=== PATIENT | female | born 2000 | race Caucasian/White ===

== ENCOUNTER 2020-04-03 18:00 | Outpatient (CLI) | payer SELFPAY ==
[2020-04-03 19:15] VITALS: BP 135/65; PULSE 102; RESP 15; TEMP 96.6
--- NOTE | 2020-04-05 07:51 | P.MSEPDOC ---
Presenting Problems - Arrival Data Date of Arrival on Unit: 04/03/20 Time of Arrival on Unit: 17:57 Mode of Transport: Ambulatory - Complaint OB-Reason for Admission/Chief Complaint: Decreased Movement Comment: Pt complains of chest pain she describes like heartburn and lower abdominal pain. Medical History - Information : 1 Para: 0 Term: 0 : 0 Abortions: Spontaneous or Elective: 0 Number of Living Children: 0 - Gestational Age Gestational Age by SOURAV (wks/days): 27 Weeks and 6 Days Review of Systems - Review of Systems Constitutional: No problems Breast: No problems ENT: No problems Cardiovascular: No problems Respiratory: No problems Gastrointestinal: No problems Genitourinary: No problems Musculoskeletal: No problems Neurological: No problems Skin: No problems Vital Signs - Temperature Temperature: 96.6 F Temperature Source: Temporal Artery Scan - Pulse Pulse Oximetery Pulse Rate: 102 Pulse Assessment Method: Pulse Oximetry - Respirations Respiratory Rate: 15 Oxygen Delivery Method: Room Air O2 Sat by Pulse Oximetry: 100 - Blood Pressure Right Arm Blood Pressure: 135/65 Blood Pressure Mean: 88 Blood Pressure Source: Automatic Cuff Medical Screen Scoring (Pre) - Cervical Exam Dilation: Exam Deferred Effacement: Exam Deferred Membranes: Intact - Uterine Contractions Frequency: N/A Duration: N/A Intensity: N/A - Maternal Vital Signs Maternal Temperature: N/A Maternal Blood Pressure: N/A Signs of Preeclampsia: N/A Maternal Respirations: N/A - Maternal Trauma Maternal Trauma: N/A - Assessment - Baby A Baseline FHR: 125 Position: N/A Station: N/A - Total Score - Baby A Total Score - Baby A: 0 - Total Score - Baby B Total Score - Baby B: 0 - Total Score - Baby C Total Score - Baby C: 0 - Level of Risk - Baby A Level of Risk - Baby A: Low (0-5) - Level of Risk - Baby B Level of Risk - Baby B: Low (0-5) - Level of Risk - Baby C Level of Risk - Baby C: Low (0-5) Physician Notification (Pre) - Physician Notified Physician Notified Date: 04/03/20 Physician Notified Time: 18:40 New Order Received: Yes Medical Screen Scoring (Post) - Cervical Exam Dilation: Exam Deferred - Uterine Contractions Frequency: N/A Duration: N/A Intensity: N/A - Maternal Vital Signs Maternal Temperature: N/A Maternal Blood Pressure: N/A Signs of Preeclampsia: N/A Maternal Respirations: N/A - Maternal Trauma Maternal Trauma: N/A - Assessment - Baby A Heart Rate: 130 Heart Rate - NICHD Category: Category I (Normal) = 0 NST: Reactive Position: N/A - Total Score Total Score - Baby A: 0 Total Score - Baby B: 0 Total Score - Baby C: 0 - Post Treatment Level of Risk Post Treatment Level of Risk - Baby A: Low (0-5) Post Treatment Level of Risk - Baby B: Low (0-5) Post Treatment Level of Risk - Baby C: Low (0-5) Physician Notification (Post) - Physician Notified Physician Notified Date: 04/03/20 Physician Notified Time: 19:50 Physician/Practitioner Notified:: ragini Gleason Order Received: Yes - Notification Comment Comment: reviewed fhts and +fm since my shift. reported on no cntrx or pain. orders to d/c home with instructions, keep scheduled appt in office on wednesday. Disposition - Disposition OB Disposition: Discharge to home Discharge Date: 04/03/20 Discharge Time: 20:00 I agree with the RN Medical Screening Exam: Yes Risk & Benefit of care provided described in d/c instruction: Yes Diagnosis: DECREASED MOVEMENTS, SECOND TRIMESTER, FETUS 1
== END 2020-04-03 20:00 | disposition home or self-care (01) ==
LOC: FBPOP 18:00
PROVIDERS: ATTEND Obstetrics & Gynecology
DX: O36.8121 Decreased fetal movements, second trimester, fetus 1 (principal); Z3A.27 27 weeks gestation of pregnancy
CPT/HCPCS: 99213

== ENCOUNTER 2020-06-10 14:00 | Outpatient (CLI) | payer SELFPAY ==
[2020-06-10 14:39] VITALS: BP 149/88; PULSE 91; RESP 18; TEMP 98.5
--- NOTE | 2020-06-12 08:08 | P.MSEPDOC ---
Presenting Problems - Arrival Data Date of Arrival on Unit: 06/10/20 Time of Arrival on Unit: 14:00 Mode of Transport: Ambulatory - Complaint OB-Reason for Admission/Chief Complaint: Rule Out SROM Comment: mucous discharge with some spotting yesterday and again this morning Medical History - Information : 1 Para: 0 Term: 0 : 0 Abortions: Spontaneous or Elective: 0 Number of Living Children: 0 - Gestational Age Gestational Age by SOURAV (wks/days): 37 Weeks and 4 Days Review of Systems - Review of Systems Constitutional: No problems Breast: No problems ENT: No problems Cardiovascular: No problems Respiratory: No problems Gastrointestinal: No problems Genitourinary: No problems Musculoskeletal: No problems Neurological: No problems Skin: No problems Vital Signs - Temperature Temperature: 98.5 F Temperature Source: Oral - Pulse Right Sitting Brachial Pulse Rate: 91 Pulse Assessment Method: Automatic Cuff - Respirations Respiratory Rate: 18 Oxygen Delivery Method: Room Air - Blood Pressure Right Arm Sitting Blood Pressure: 149/88 Blood Pressure Mean: 108 - Comment Vital Signs Comment: BP 123/75 on repeat Medical Screen Scoring (Pre) - Cervical Exam Dilation: 1-3 cm = 1 - Uterine Contractions Frequency: > 5 minutes apart = 1 Duration: > 40 seconds = 2 Intensity: N/A - Maternal Vital Signs Maternal Temperature: N/A Maternal Blood Pressure: Systolic >139 = 2 Signs of Preeclampsia: N/A Maternal Respirations: N/A - Assessment - Baby A Baseline FHR: 125 Heart Rate - NICHD Category: Category I (Normal) = 0 NST: Reactive Position: N/A Station: N/A - Total Score - Baby A Total Score - Baby A: 6 - Total Score - Baby B Total Score - Baby B: 6 - Total Score - Baby C Total Score - Baby C: 6 - Level of Risk - Baby A Level of Risk - Baby A: Medium (6-9) - Level of Risk - Baby B Level of Risk - Baby B: Medium (6-9) - Level of Risk - Baby C Level of Risk - Baby C: Medium (6-9) - Pain Assessment Pain Location and Character: Abdomen Pain Scale Used: Numeric (1 - 10) Pain Intensity: 3 Pain Management Goal: 3 Pain Description: Cramping Physician Notification (Pre) - Physician Notified Physician Notified Date: 06/10/20 Physician Notified Time: 14:35 New Order Received: Yes - Notification Comment Comment: amnisure neg. NST reactive. Variable deceleration x1. Blood pressures discussed.dc home. Pt to follow up in the office Wednesday as scheduled. Disposition - Disposition OB Disposition: Discharge to home Discharge Date: 06/10/20 Discharge Time: 14:38 I agree with the RN Medical Screening Exam: Yes Risk & Benefit of care provided described in d/c instruction: Yes Diagnosis: FALSE LABOR BEFORE 37 COMPLETED WEEKS OF GEST, THIRD TRI
== END 2020-06-10 14:39 | disposition home or self-care (01) ==
LOC: FBPOP 14:00
PROVIDERS: ATTEND Obstetrics & Gynecology
DX: O47.03 False labor before 37 completed weeks of gestation, third trimester (principal); Z3A.37 37 weeks gestation of pregnancy
CPT/HCPCS: 59025; 84112; 99213

== ENCOUNTER 2020-06-16 13:40 | Inpatient (IN) | payer OTHER ==
[2020-06-16] MEDS ORDERED: TERBUTALINE 1 MG/ML VIAL SQ PRN (14:14)
[2020-06-16] MEDS ORDERED: CARBOPROST TROMETHAMINE 250 MCG/ML 1 ML AMP IM PRN (14:14)
[2020-06-16] MEDS ORDERED: OXYTOCIN 10 UNIT/ML 1 ML VIAL IM PRN (14:14)
[2020-06-16] MEDS ORDERED: AMPICILLIN 2,000 MG in SODIUM CHLORIDE 0.9% 100 ML IVPB STA (14:14)
[2020-06-16] MEDS ORDERED: METHYLERGONOVINE 0.2 MG/ML 1 ML AMP IM PRN (14:14)
[2020-06-16] MEDS ORDERED: LIDOCAINE 0.5% (PF) 5 MG/ML (50 ML SDV) SQ PRN (14:14)
[2020-06-16] MEDS ORDERED: LACTATED RINGERS 1,000 ML IV SCH (14:15)
[2020-06-16 14:24] LABS: Basophils % (A) 0 %; Eosinophils # (A) 0.1 k/uL (0-0.7); Eosinophils % (A) 1 %; HGB 10.6 gm/dL (11.4-16.0); Lymphocytes # (A) 1.5 k/uL (1.0-4.8); Lymphocytes % (A) 12 %; MCH 28.7 pg (25.0-35.0); MCV 86.7 fL (80.0-100.0); Mean Platelet Volume 8.4; Monocytes # (A) 0.4 k/uL (0-1.0); Monocytes % (A) 3 %; Neutrophils % (A) 82 %; Platelet Count 296 k/uL (150-450); RBC 3.69 m/uL (3.80-5.40); RDW 14.7 % (11.5-15.5); WBC 12.2 k/uL (4.0-11.0)
--- NOTE | 2020-06-16 14:54 | P.HPOB ---
History of Present Illness H&P Date: 06/16/20 Chief Complaint: Contractions This patient is a pleasant 20-year-old 1 para 0 female estimated date of confinement 06/27/2020 estimated gestational age 38-3/7 weeks who presents to labor and delivery with complaints of contractions. Patient's cervix is dilated 78 cm on admission found to be in active labor. Patient's care is per Dr. Walsh's comp K by positive chlamydial first trimester culture which negative test of cure. otherwise uncomplicated. Patient has spontaneous rupture membranes upon arrival to labor and delivery for clear fluid she is oh positive group B strep culture Review of Systems Genitourinary: Reports Menstruation: Reports amenorrhea Past Medical History History of Any Multi-Drug Resistant Organisms: None Reported Past Surgical History: No Surgical Hx Reported Past Anesthesia/Blood Transfusion Reactions: No Reported Reaction Past Psychological History: No Psychological Hx Reported Smoking Status: Never smoker Past Alcohol Use History: None Reported Past Drug Use History: None Reported Medications and Allergies Home Medications Medication Instructions Recorded Confirmed Type No Known Home Medications 04/03/20 06/16/20 History Allergies Allergy/AdvReac Type Severity Reaction Status Date / Time No Known Allergies Allergy Verified 04/03/20 18:02 Exam Intake and Output 06/15/20 06/16/20 06/16/20 22:59 06:59 14:59 Other: Weight 92.533 kg - OBG Physical Exam Abdomen: bowel sounds normal, no diffuse tenderness, no bruit present, no guarding noted, no hepatomegaly, no splenomegaly, no mass Vulva: both: normal Vagina: normal moisture, no discharge Cervix: Cervix is 7-8 cm on admission. Results blood work blood work shows she is a positive, rubella immune, RPR nonreactive, hepatitis B negative. Group B strep was positive Result Diagrams: 06/16/20 14:10 Abnormal Lab Results - Last 24 Hours (Table) 06/16/20 Range/Units 14:10 WBC 12.2 H (4.0-11.0) k/uL RBC 3.69 L (3.80-5.40) m/uL Hgb 10.6 L (11.4-16.0) gm/dL Hct 32.0 L (34.0-46.0) % Neutrophils # 10.0 H (1.3-7.7) k/uL Assessment and Plan Assessment: This is a pleasant 20-year-old 1 para 0 female 38 and half weeks gestation active labor and spontaneous rupture membranes with positive group B strep culture. Plan is antibiotic prophylaxis and anticipate vaginal delivery (1) 38 weeks gestation of Current Visit: Yes Status: Acute Code(s): Z3A.38 - 38 WEEKS GESTATION OF SNOMED Code(s): 15987287 (2) Normal labor Current Visit: Yes Status: Acute Code(s): O80 - ENCOUNTER FOR FULL-TERM UNCOMPLICATED DELIVERY; Z37.9 - OUTCOME OF DELIVERY, UNSPECIFIED SNOMED Code(s): 41194780 (3) Group B streptococcal carriage complicating Current Visit: Yes Status: Acute Code(s): O99.820 - STREPTOCOCCUS B CARRIER STATE COMPLICATING SNOMED Code(s): 285935824537611
--- NOTE | 2020-06-16 14:56 | P.PROBDLV ---
Vaginal Delivery Note - . Vaginal Delivery Note: Normal spontaneous vaginal delivery viable female infant Apgars 9 and 9 delivery time is 1443 hrs. Please see dictated H&P for intimate details of this patient's admission. Brief summary is a pleasant 20-year-old 1 para 0 female 38-3/7 weeks who is admitted to labor and delivery with complaints of contractions found to be 78 cm dilated. Patient spontaneous rupture membranes for clear fluid. She is given one dose of antibiotics on admission. Patient does not request anything for pain control. Labor progresses quite quickly and she gets to complete. Patient pushes the head to the perineum posterior perineum is supported. We have controlled delivery of the infant's head over the intact perineum. Mouth and nares are bulb suctioned. Gentle downward traction we then have deliver the anterior and posterior shoulder and rest this 's body. This is a vigorous viable female infant Apgars are 9 and 9 delivery time is 1443 hrs. Infant has spontaneous respiration and good cry and grossly appears normal. After delivery of the infant is laid on the mother's abdomen. After the umbilical cord is done pulsating, it is doubly clamped and cut. The placenta is then spontaneously delivered intact. Estimated blood loss is 100 mL. There are no lacerations and no repairs required. and mother are stable delivery room.
[2020-06-16] MEDS ORDERED: SIMETHICONE 80 MG CHEWABLE PO PRN (14:57)
[2020-06-16] MEDS ORDERED: ZOLPIDEM 5 MG TAB PO PRN (14:57)
[2020-06-16] MEDS ORDERED: ACETAMINOPHEN TAB 325 MG TAB PO PRN (14:57)
[2020-06-16] MEDS ORDERED: diphenhydrAMINE 50 MG/ML 1 ML VIAL IVP PRN (14:57)
[2020-06-16] MEDS ORDERED: BENZOCAINE/MENTHOL SPRAY 1 GM/SPRAY AEROSOL TOPICAL PRN (14:57)
[2020-06-16] MEDS ORDERED: HYDROCORTISONE 2.5% RECTAL CREAM 30 GM TUBE RECTAL PRN (14:57)
[2020-06-16] MEDS ORDERED: IBUPROFEN 600 MG TAB PO PRN (14:57)
[2020-06-16] MEDS ORDERED: bisacodyL 10 MG SUPP RECTAL PRN (14:57)
[2020-06-16] MEDS ORDERED: diphenhydrAMINE 25 MG CAP PO PRN (14:57)
[2020-06-16] MEDS ORDERED: LANOLIN CREAM 5 GM TUBE TOPICAL PRN (14:57)
[2020-06-16] MEDS ORDERED: OXYTOCIN 20 UNITS/1000 ML NS 1,000 ML IV SCH (15:00)
[2020-06-16] MEDS ORDERED: AMPICILLIN 1,000 MG in SODIUM CHLORIDE 0.9% 50 ML IVPB SCH (18:15)
[2020-06-16] MEDS: SENNOSIDES-DOCUSATE SODIUM 1 EACH TAB PO SCH (20:03)
--- NOTE | 2020-06-17 05:32 | P.PNOBGVD ---
Subjective - Subjective Patient reports: Reports appetite normal, Reports voiding normally, Reports pain well controlled, Reports ambulating normally : doing well Objective - Latest Vital Signs Latest vital signs: Vital Signs Temp Pulse Resp BP Pulse Ox 06/16/20 23:49 85 16 06/16/20 23:48 98.6 F 85 16 135/87 98 06/16/20 19:49 98.6 F 85 16 128/73 98 06/16/20 16:55 98.0 F 67 16 150/89 06/16/20 16:24 97.9 F 61 16 161/90 06/16/20 15:55 63 16 171/88 06/16/20 15:40 67 16 166/86 06/16/20 15:25 97.9 F 60 16 139/87 06/16/20 15:10 98.1 F 61 16 132/62 06/16/20 14:55 97.4 F L 68 16 140/68 06/16/20 14:12 98.1 F 93 18 146/78 100 Intake and Output 06/16/20 06/16/20 06/17/20 14:59 22:59 06:59 Intake Total 700 Balance 700 Intake: IV 700 Other: # Voids 1 Weight 92.533 kg - Exam Lungs: bilateral: normal Chest: Normal S1, Normal S2 Extremities: Present: normal Abdomen: Present: normal appearance, soft Uterus: Present: normal, firm - Labs Labs: Abnormal Lab Results - Last 24 Hours (Table) 06/16/20 Range/Units 14:10 WBC 12.2 H (4.0-11.0) k/uL RBC 3.69 L (3.80-5.40) m/uL Hgb 10.6 L (11.4-16.0) gm/dL Hct 32.0 L (34.0-46.0) % Neutrophils # 10.0 H (1.3-7.7) k/uL Assessment and Plan Assessment: day #1. Patient is resting without new complaints. Vital signs are stable she's afebrile. Uterus is firm nontender and she is having normal lochia. My impression this is a normal course. Plan is to continue routine care discharge home tomorrow (1) 38 weeks gestation of Current Visit: Yes Status: Acute Code(s): Z3A.38 - 38 WEEKS GESTATION OF SNOMED Code(s): 68051145 (2) Normal labor Current Visit: Yes Status: Acute Code(s): O80 - ENCOUNTER FOR FULL-TERM UNCOMPLICATED DELIVERY; Z37.9 - OUTCOME OF DELIVERY, UNSPECIFIED SNOMED Code(s): 45338405 (3) Group B streptococcal carriage complicating Current Visit: Yes Status: Acute Code(s): O99.820 - STREPTOCOCCUS B CARRIER STATE COMPLICATING SNOMED Code(s): 152124890716671
[2020-06-17] MEDS: SENNOSIDES-DOCUSATE SODIUM 1 EACH TAB PO SCH (21:20)
[2020-06-18 00:59] VITALS: TEMP 98.2
--- NOTE | 2020-06-18 06:28 | P.PNOBGVD ---
Subjective - Subjective Patient reports: Reports appetite normal, Reports voiding normally, Reports pain well controlled, Reports ambulating normally : doing well Objective - Latest Vital Signs Latest vital signs: Vital Signs Temp Pulse Resp BP Pulse Ox 06/18/20 00:00 98.2 F 69 16 143/78 100 06/17/20 16:17 98.0 F 73 16 150/81 06/17/20 12:39 75 16 129/76 06/17/20 09:10 98.3 F 76 16 142/89 Intake and Output 06/17/20 06/17/20 06/18/20 14:59 22:59 06:59 Intake Total 120 Balance 120 Intake: Oral 120 Other: # Voids 2 1 # Bowel Movements 1 - Exam Lungs: bilateral: normal Chest: Normal S1, Normal S2 Extremities: Present: normal Abdomen: Present: normal appearance, soft Uterus: Present: normal, firm Assessment and Plan Assessment: day #2. Patient is resting without complaints. Vital signs are stable and she is afebrile. Uterus is firm nontender and she has normal lochia. My impression is a normal course. Plan is to continue routine care and discharge home later today. (1) 38 weeks gestation of Current Visit: Yes Status: Acute Code(s): Z3A.38 - 38 WEEKS GESTATION OF SNOMED Code(s): 96433077 (2) Normal labor Current Visit: Yes Status: Acute Code(s): O80 - ENCOUNTER FOR FULL-TERM UNCOMPLICATED DELIVERY; Z37.9 - OUTCOME OF DELIVERY, UNSPECIFIED SNOMED Code(s): 68450420 (3) Group B streptococcal carriage complicating Current Visit: Yes Status: Acute Code(s): O99.820 - STREPTOCOCCUS B CARRIER STATE COMPLICATING SNOMED Code(s): 461244295229550
--- NOTE | 2020-06-18 06:32 | P.DS ---
Providers Date of admission: 06/16/20 13:52 Expected date of discharge: 06/18/20 Attending physician: Margaux Walsh Primary care physician: Stated None - Discharge Diagnosis(es) (1) 38 weeks gestation of Current Visit: Yes Status: Acute (2) Normal labor Current Visit: Yes Status: Acute (3) Group B streptococcal carriage complicating Current Visit: Yes Status: Acute Hospital Course: Please see dictated H&P for intimate details of this patient's admission. Brief summary this pleasant 20-year-old 1 para 0 female 38 and half weeks gestation admitted to labor and delivery in active labor. Patient quickly goes on have a vaginal delivery viable female . Please see dictated delivery note. day #2 patient's felt be stable for discharge home follow up with Dr. Walsh and 6 weeks. Procedures: Normal spontaneous vaginal delivery Patient Condition at Discharge: Good Plan - Discharge Summary Discharge Rx Participant: Yes New Discharge Prescriptions: New Ibuprofen [Motrin] 600 mg PO Q6HR PRN #30 tab PRN Reason: Mild Pain Or Fever >= 100.5 Discharge Medication List Ibuprofen [Motrin] 600 mg PO Q6HR PRN #30 tab 06/18/20 [Rx] Follow up Appointment(s)/Referral(s): Margaux Walsh DO [Doctor of Osteopathic Medicine] - 08/02/20 10:45 am Patient Instructions/Handouts: Vaginal Delivery (DC) Activity/Diet/Wound Care/Special Instructions: No intercourse or anything per vagina for 6 weeks. Please call if any fever, chills, excessive vaginal bleeding, and/or abdominal pain. Discharge Disposition: HOME SELF-CARE
[2020-06-18] MEDS: SENNOSIDES-DOCUSATE SODIUM 1 EACH TAB PO SCH (09:48)
[2020-06-18 16:28] LABS: Basophils % (A) 0 %; Eosinophils # (A) 0.2 k/uL (0-0.7); Eosinophils % (A) 2 %; HCT 26.6 % (34.0-46.0); Hypochromasia Slight; Lymphocytes # (A) 1.9 k/uL (1.0-4.8); Lymphocytes % (A) 24 %; MCH 29.3 pg (25.0-35.0); MCHC 33.5 g/dL (31.0-37.0); MCV 87.4 fL (80.0-100.0); Mean Platelet Volume 7.5; Monocytes # (A) 0.3 k/uL (0-1.0); Monocytes % (A) 4 %; Neutrophils # (A) 5.3 k/uL (1.3-7.7); Neutrophils % (A) 68 %; Platelet Count 330 k/uL (150-450); RBC 3.04 m/uL (3.80-5.40); RDW 14.8 % (11.5-15.5); WBC 7.8 k/uL (4.0-11.0)
[2020-06-18 16:29] LABS: HGB 8.9 gm/dL (11.4-16.0)
[2020-06-18 16:31] LABS: Appearance,Urine Clear (Clear); Bilirubin,Urine Negative (Negative); Blood,Urine Moderate (Negative); Color,Urine Light Yellow; Glucose,Urine (UA) Negative (Negative); Hyaline Casts,Urine 1 /lpf (0-2); Ketones,Urine Negative (Negative); Leukocyte Esterase,Urine Large (Negative); Mucus,Urine Rare /hpf; Nitrite,Urine Negative (Negative); PH, Urine 6.5 (5.0-8.0); Protein,Urine Negative (Negative); RBC,Urine 71 /hpf (0-5); Specific Gravity,Urine 1.012 (1.001-1.035); Squamous Epithelial Cell,Urine 1 /hpf (0-4); Urobilinogen,Urine <2.0 mg/dL (<2.0); WBC,Urine 14 /hpf (0-5)
[2020-06-18 16:46] LABS: Protein/Creatinine Ratio,Urine 0.301
[2020-06-18 16:47] LABS: ALT 12 U/L (4-34); AST 22 U/L (14-36); African American GFR (CKD) >90 (>60 ml/min/1.73 sqM); Blood Urea Nitrogen 11 mg/dL (7-17); LDH 610 U/L (313-618); Non-African American GFR(CKD) >90 (>60 ml/min/1.73 sqM); Uric Acid 5.1 mg/dL (3.7-7.4)
[2020-06-18 19:03] VITALS: BP 154/99; PULSE 73; RESP 18
== END 2020-06-18 19:25 | disposition home or self-care (01) | DRG 807 ==
LOC: FBPOP 13:40 → 4FBP 13:52
PROVIDERS: ADMIT Obstetrics & Gynecology; ATTEND Obstetrics & Gynecology
PROC: 10E0XZZ Delivery of Products of Conception, External Approach (ICD-10-PCS; principal; 2020-06-16)
DX: O99.824 Streptococcus B carrier state complicating childbirth (principal); Z37.0 Single live birth; Z3A.38 38 weeks gestation of pregnancy; Z86.19 Personal history of other infectious and parasitic diseases
CPT/HCPCS: 59025; 81001; 82565; 82570; 83615; 84112; 84156; 84450; 84460; 84520; 84550; 85025; 86850; 86900; 86901; 99213

== ENCOUNTER 2020-08-27 17:04 | Inpatient (IN) | payer OTHER ==
[2020-08-27] MEDS ORDERED: PANTOPRAZOLE 40 MG/10 ML VIAL IVP STA (17:35)
[2020-08-27] MEDS ORDERED: KETOROLAC 15 MG/ML 1 ML VIAL IVP STA (17:35)
[2020-08-27] MEDS ORDERED: SODIUM CHLORIDE 0.9% 1,000 ML IV STA (17:35)
[2020-08-27] MEDS ORDERED: ONDANSETRON 4 MG/2 ML VIAL IVP STA (17:35)
--- NOTE | 2020-08-27 17:39 | ED ---
Abdominal Pain HPI - General Chief Complaint: Abdominal Pain Stated Complaint: ABD PAIN, VOMITING Time Seen by Provider: 08/27/20 17:26 Source: patient Mode of arrival: ambulatory Limitations: no limitations - History of Present Illness Initial Comments: Patient is a 20-year-old female with history of GERD presenting to emergency Department with a chief complaint of abdominal pain. Patient reports the pain started last night that she ate and is located in the epigastric and right upper quadrant region. Patient reports she took Tums initially because it felt a burning sensation. States it did alleviate the discomfort, however it did return again after she ate and has not resolved since. Patient states the pain is somewhat colicky in nature and mostly sharp. She does report nausea and 2 episodes of nonbilious and nonbloody vomiting. She denies increased urgency or frequency or dysuria. Denies any vaginal symptoms. Denies hematuria, hem atochezia or melena. She is 2 months . Denies night sweats or chills. Denies chest pain shortness of breath. She doesn't to drinking 3 days over the last week. - Related Data Home Medications Medication Instructions Recorded Confirmed Unknown Heart Burn Medication 1 tab PO DAILY PRN 08/27/20 08/27/20 (Unknown Strength) Allergies Allergy/AdvReac Type Severity Reaction Status Date / Time No Known Allergies Allergy Verified 08/27/20 18:58 Review of Systems ROS Statement: Those systems with pertinent positive or pertinent negative responses have been documented in the HPI. ROS Other: All systems not noted in ROS Statement are negative. Past Medical History Past Medical History: No Reported History History of Any Multi-Drug Resistant Organisms: None Reported Past Surgical History: No Surgical Hx Reported Past Anesthesia/Blood Transfusion Reactions: No Reported Reaction Past Psychological History: No Psychological Hx Reported Smoking Status: Vaper Past Alcohol Use History: Occasional Past Drug Use History: None Reported - Past Family History Mother History Unknown: Yes General Exam Limitations: no limitations General appearance: alert, in no apparent distress, obese Head exam: Present: atraumatic, normocephalic, normal inspection Eye exam: Present: normal appearance, PERRL, EOMI Pupils: Present: normal accommodation ENT exam: Present: normal exam, normal oropharynx, mucous membranes moist Neck exam: Present: normal inspection, full ROM. Absent: tenderness Respiratory exam: Present: normal lung sounds bilaterally. Absent: respiratory distress, wheezes, rales Cardiovascular Exam: Present: regular rate, normal rhythm, normal heart sounds GI/Abdominal exam: Present: soft, tenderness (Epigastric and right upper quadran tenderness t. Positive Morin sign.). Absent: distended, guarding, rigid Extremities exam: Present: normal inspection, full ROM, normal capillary refill. Absent: tenderness Back exam: Present: normal inspection, full ROM. Absent: tenderness, CVA tenderness (R), CVA tenderness (L) Neurological exam: Present: alert, oriented X3, CN II-XII intact, normal gait Psychiatric exam: Present: normal affect, normal mood Skin exam: Present: warm, dry, intact, normal color Course Vital Signs 08/27/20 17:22 Temperature 98.6 F Pulse Rate 88 Respiratory 18 Rate Blood Pressure 133/83 O2 Sat by Pulse 100 Oximetry Medical Decision Making - Medical Decision Making Patient is a 20-year-old male presenting to the emergency department with a chief complaint of abdominal pain. Exam patient has positive Morin sign with right upper quadrant epigastric tenderness. She does have nausea or vomiting. Patient was given IV fluids, antiemetics and analgesia. CBC is unremarkable. CMP reveals significant elevation in liver enzymes. She also has elevated bilirubin and lipase of 3500. Ultrasound pending. Patient is otherwise feeling comfortable. She is not . This appears to be gallstone pancreatitis. was consulted and is suggesting IV antibiotics and 2 L of IV bolus fluids. Repeat labs in the morning. Case discussed with Admitting is Dr Galvez - Lab Data Result diagrams: 08/27/20 17:49 08/27/20 17:49 Lab Results 08/27/20 08/27/20 08/27/20 Range/Units 17:49 17:49 17:49 WBC 6.4 (4.0-11.0) k/uL RBC 4.01 (3.80-5.40) m/uL Hgb 11.4 (11.4-16.0) gm/dL Hct 35.6 (34.0-46.0) % MCV 88.7 (80.0-100.0) fL MCH 28.4 (25.0-35.0) pg MCHC 32.0 (31.0-37.0) g/dL RDW 15.2 (11.5-15.5) % Plt Count 382 (150-450) k/uL Neutrophils % 71 % Lymphocytes % 19 % Monocytes % 6 % Eosinophils % 2 % Basophils % 0 % Neutrophils # 4.6 (1.3-7.7) k/uL Lymphocytes # 1.2 (1.0-4.8) k/uL Monocytes # 0.4 (0-1.0) k/uL Eosinophils # 0.1 (0-0.7) k/uL Basophils # 0.0 (0-0.2) k/uL Hypochromasia Slight Sodium 139 (137-145) mmol/L Potassium 4.2 (3.5-5.1) mmol/L Chloride 105 (98-107) mmol/L Carbon Dioxide 26 (22-30) mmol/L Anion Gap 8 mmol/L BUN 13 (7-17) mg/dL Creatinine 0.56 (0.52-1.04) mg/dL Est GFR (CKD-EPI)AfAm >90 (>60 ml/min/1.73 sqM) Est GFR (CKD-EPI)NonAf >90 (>60 ml/min/1.73 sqM) Glucose 104 H (74-99) mg/dL Calcium 9.3 (8.4-10.2) mg/dL Total Bilirubin 2.1 H (0.2-1.3) mg/dL AST 718 H (14-36) U/L ALT 1068 H (4-34) U/L Alkaline Phosphatase 298 H (38-126) U/L Total Protein 8.5 H (6.3-8.2) g/dL Albumin 4.8 (3.5-5.0) g/dL Lipase 3567 H (23-300) U/L Urine Color Urine Appearance (Clear) Urine pH (5.0-8.0) Ur Specific [place] (1.001-1.035) Urine Protein (Negative) Urine Glucose (UA) (Negative) Urine Ketones (Negative) Urine Blood (Negative) Urine Nitrite (Negative) Urine Bilirubin (Negative) Urine Urobilinogen (<2.0) mg/dL Ur Leukocyte Esterase (Negative) Urine RBC (0-5) /hpf Urine WBC (0-5) /hpf Ur Squamous Epith Cells (0-4) /hpf Urine Mucus (None) /hpf Urine HCG, Qual Not Detected (Not Detectd) 08/27/20 Range/Units 18:07 WBC (4.0-11.0) k/uL RBC (3.80-5.40) m/uL Hgb (11.4-16.0) gm/dL Hct (34.0-46.0) % MCV (80.0-100.0) fL MCH (25.0-35.0) pg MCHC (31.0-37.0) g/dL RDW (11.5-15.5) % Plt Count (150-450) k/uL Neutrophils % % Lymphocytes % % Monocytes % % Eosinophils % % Basophils % % Neutrophils # (1.3-7.7) k/uL Lymphocytes # (1.0-4.8) k/uL Monocytes # (0-1.0) k/uL Eosinophils # (0-0.7) k/uL Basophils # (0-0.2) k/uL Hypochromasia Sodium (137-145) mmol/L Potassium (3.5-5.1) mmol/L Chloride (98-107) mmol/L Carbon Dioxide (22-30) mmol/L Anion Gap mmol/L BUN (7-17) mg/dL Creatinine (0.52-1.04) mg/dL Est GFR (CKD-EPI)AfAm (>60 ml/min/1.73 sqM) Est GFR (CKD-EPI)NonAf (>60 ml/min/1.73 sqM) Glucose (74-99) mg/dL Calcium (8.4-10.2) mg/dL Total Bilirubin (0.2-1.3) mg/dL AST (14-36) U/L ALT (4-34) U/L Alkaline Phosphatase (38-126) U/L Total Protein (6.3-8.2) g/dL Albumin (3.5-5.0) g/dL Lipase (23-300) U/L Urine Color Mathis Urine Appearance Clear (Clear) Urine pH 6.5 (5.0-8.0) Ur Specific [place] 1.036 H (1.001-1.035) Urine Protein Trace H (Negative) Urine Glucose (UA) Negative (Negative) Urine Ketones Negative (Negative) Urine Blood Trace H (Negative) Urine Nitrite Negative (Negative) Urine Bilirubin 1+ H (Negative) Urine Urobilinogen 3.0 (<2.0) mg/dL Ur Leukocyte Esterase Negative (Negative) Urine RBC <1 (0-5) /hpf Urine WBC 1 (0-5) /hpf Ur Squamous Epith Cells 1 (0-4) /hpf Urine Mucus Rare H (None) /hpf Urine HCG, Qual (Not Detectd) Disposition Clinical Impression: Abdominal pain, Nausea & vomiting, Gallstone pancreatitis Disposition: ADMITTED IP TO THIS [facility] Condition: Stable Instructions (If sedation given, give patient instructions): Abdominal Pain (ED) Additional Instructions: She will be admitted Is patient prescribed a controlled substance at d/c from ED?: No Referrals: None,Stated [Primary Care Provider] - 1-2 days Time of Disposition: 19:27
[2020-08-27 18:11] LABS: Basophils % (A) 0 %; Eosinophils # (A) 0.1 k/uL (0-0.7); Eosinophils % (A) 2 %; HCT 35.6 % (34.0-46.0); HGB 11.4 gm/dL (11.4-16.0); Hypochromasia Slight; Lymphocytes # (A) 1.2 k/uL (1.0-4.8); Lymphocytes % (A) 19 %; MCH 28.4 pg (25.0-35.0); MCV 88.7 fL (80.0-100.0); Mean Platelet Volume 6.7; Monocytes # (A) 0.4 k/uL (0-1.0); Monocytes % (A) 6 %; Neutrophils # (A) 4.6 k/uL (1.3-7.7); Neutrophils % (A) 71 %; Platelet Count 382 k/uL (150-450); RBC 4.01 m/uL (3.80-5.40); RDW 15.2 % (11.5-15.5); WBC 6.4 k/uL (4.0-11.0)
[2020-08-27 18:13] LABS: Appearance,Urine Clear (Clear); Bilirubin,Urine 1+ (Negative); Blood,Urine Trace (Negative); Color,Urine Orange; Glucose,Urine (UA) Negative (Negative); Ketones,Urine Negative (Negative); Leukocyte Esterase,Urine Negative (Negative); Mucus,Urine Rare /hpf; Nitrite,Urine Negative (Negative); PH, Urine 6.5 (5.0-8.0); Protein,Urine Trace (Negative); RBC,Urine <1 /hpf (0-5); Specific Gravity,Urine 1.036 (1.001-1.035); Squamous Epithelial Cell,Urine 1 /hpf (0-4); WBC,Urine 1 /hpf (0-5)
[2020-08-27 18:23] LABS: African American GFR (CKD) >90 (>60 ml/min/1.73 sqM); Albumin 4.8 g/dL (3.5-5.0); Alkaline Phosphatase 298 U/L (38-126); Anion Gap 8 mmol/L; Blood Urea Nitrogen 13 mg/dL (7-17); Calcium 9.3 mg/dL (8.4-10.2); Carbon Dioxide 26 mmol/L (22-30); Chloride 105 mmol/L (98-107); Glucose 104 mg/dL (74-99); Non-African American GFR(CKD) >90 (>60 ml/min/1.73 sqM); Potassium 4.2 mmol/L (3.5-5.1); Sodium 139 mmol/L (137-145); Total Bilirubin 2.1 mg/dL (0.2-1.3); Total Protein 8.5 g/dL (6.3-8.2)
[2020-08-27 18:41] LABS: ALT 1068 U/L (4-34); AST 718 U/L (14-36)
[2020-08-27] MEDS ORDERED: PIPERACILLIN-TAZOBACTAM 3.375 GM in SODIUM CHLORIDE 0.9% 100 ML IVPB STA (19:23)
[2020-08-27] MEDS ORDERED: SODIUM CHLORIDE 0.9% 2,000 ML IV STA (19:23)
[2020-08-27] MEDS ORDERED: traMADol 50 MG TAB PO PRN (19:27)
[2020-08-27] MEDS ORDERED: LORazepam 2 MG/ML INJ IV PRN (19:27)
[2020-08-27] MEDS ORDERED: HYDROmorphone 0.5 MG/0.5 ML SYRINGE IVP PRN (19:27)
[2020-08-27] MEDS ORDERED: ONDANSETRON 4 MG/2 ML VIAL IVP PRN (19:27)
[2020-08-27] MEDS ORDERED: NALOXONE 0.4 MG/ML 1 ML VIAL IV PRN (19:27)
--- NOTE | 2020-08-27 19:30 | US ---
EXAMINATION TYPE: US abdomen limited DATE OF EXAM: 08/27/2020 COMPARISON: NONE CLINICAL HISTORY: Right upper quadrant epigastric pain. . RUQ and epigastric pain x 1 day. EXAM MEASUREMENTS: Liver Length: 18.4 cm Gallbladder Wall: 0.22 cm CBD: 0.73 cm Right Kidney: 11.9 x 5.9 x 4.5 cm *Limited due to gas. Pancreas: Slightly limited due to gas. Liver: Measures enlarged. Gallbladder: Measures enlarged at 10.7 cm. Multiple hyperechoic foci with posterior shadowing seen wi thin the gallbladder. Evidence for sonographic Morin's sign: No CBD: Minimally dilated. Right Kidney: No hydronephrosis or masses seen -Hypoechoic-possibly anechoic area seen between the liver and right kidney of unknown origin measurin .8 x 1.5 x 1.0 cm. Visualized pancreas shows no worrisome mass or ductal dilatation. IVC seen near hepatic dome. Visuali zed liver is slightly heterogeneous without worrisome mass or ductal dilatation. Right kidney shows n o hydronephrosis. Gallbladder shows suspected small stones and/or gallbladder sludge. No suspicious s urrounding fluid or abnormal wall thickening. Mild common bile duct dilatation at 7 mm. Possible righ t adrenal gland prominence or hyperplasia corresponding to curvilinear hypoechoic structure described by technologist. IMPRESSION: Gallbladder sludge and/or small stones. No convincing secondary also no evidence for acut e cholecystitis. In patient with right upper quadrant pain not entirely excluded. Consider HIDA scan evaluation. Mild CBD dilatation could warrant follow-up. Correlate clinically.
[2020-08-27] MEDS: MORPHINE SULFATE 4 MG/ML SYRINGE IV PRN (20:09)
[2020-08-27] MEDS: SODIUM CHLORIDE 0.9% 1,000 ML IV SCH (23:00)
[2020-08-28 05:06] LABS: Basophils % (A) 1 %; Eosinophils # (A) 0.1 k/uL (0-0.7); Eosinophils % (A) 2 %; HCT 28.6 % (34.0-46.0); Hypochromasia Moderate; Lymphocytes # (A) 1.7 k/uL (1.0-4.8); Lymphocytes % (A) 29 %; MCHC 32.4 g/dL (31.0-37.0); MCV 89.3 fL (80.0-100.0); Mean Platelet Volume 6.9; Monocytes # (A) 0.3 k/uL (0-1.0); Monocytes % (A) 5 %; Neutrophils # (A) 3.4 k/uL (1.3-7.7); Neutrophils % (A) 61 %; Platelet Count 295 k/uL (150-450); RBC 3.21 m/uL (3.80-5.40); RDW 15.2 % (11.5-15.5); WBC 5.6 k/uL (4.0-11.0)
[2020-08-28 05:09] LABS: HGB 9.3 gm/dL (11.4-16.0)
[2020-08-28 09:36] LABS: African American GFR (CKD) 152.1 (60.0-200.0); Albumin 3.7 g/dL (3.80-4.90); Albumin/Globulin Ratio 1.68 (1.60-3.17); Anion Gap 7.5 mmol/L (4.00-12.00); BUN/Creat Ratio 18.33 Ratio (12.00-20.00); Calcium 8.2 mg/dL (8.7-10.3); Carbon Dioxide 22.5 mmol/L (21.6-31.8); Globulin 2.2 g/dL (1.6-3.3); Non-African American GFR(CKD) 131.2 (60.0-200.0); Potassium 3.7 mmol/L (3.5-5.5); Total Bilirubin 0.6 mg/dL (0.2-1.2); Total Protein 5.9 g/dL (6.2-8.2)
[2020-08-28] MEDS: SODIUM CHLORIDE 0.9% 1,000 ML IV SCH (10:25)
[2020-08-28] MEDS: MORPHINE SULFATE 4 MG/ML SYRINGE IV PRN ×2 (11:58→19:44)
--- NOTE | 2020-08-28 12:16 | P.GSHP ---
<Massiel Armas - Last Filed: 08/28/20 11:59> History of Present Illness H&P Date: 08/28/20 CHIEF COMPLAINT: Abdominal pain HISTORY OF PRESENT ILLNESS: This is a 20-year-old female who is 2 months and reports no other significant past medical history. She presents to the emergency room with complaints of epigastric and right upper quadrant abdominal pain after eating for the past 2 days. Patient describes it as a burning sensation. She did initially take Tums that did help alleviate the symptoms for a short period of time and then symptoms returned. She complains of nausea and had 2 episodes of vomiting. She's been having chills and sweats. She denies any fever. Abdominal ultrasound shows gallbladder sludge and or small stones. Also mild common bile duct dilation. She had elevation in her l iver enzymes as well as her lipase and amylase. She's been admitted to the hospital for gallstone pancreatitis. She is currently nothing by mouth, receiving IV fluids and pain medications as needed. Patient does report drinking alcohol occasionally on the weekends. She reports her last alcoholic drink was last Wednesday and she had 2 alcoholic averages. PAST MEDICAL HISTORY: See list. PAST SURGICAL HISTORY: See list. MEDICATIONS: See list. ALLERGIES: See list. SOCIAL HISTORY: No illicit drug use. REVIEW OF SYSTEMS: CONSTITUTIONAL: Denies fever or chills. HEENT: Denies blurred vision, vision changes, or eye pain. Denies hemoptysis CARDIOVASCULAR: Denies chest pain or pressure. RESPIRATORY: No shortness of breath. GASTROINTESTINAL: See HPI for pertinent findings HEMATOLOGIC: Denies bleeding disorders. GENITOURINARY: Denies any blood in urine or increased urinary frequency. SKIN: Denies pruitis. Denies rash. PHYSICAL EXAM: VITAL SIGNS: Reviewed GENERAL: Well-developed in no acute distress. HEENT: No sclera icterus. Extraocular movements grossly intact. Moist buccal mucosa. Head is atraumatic, normocephalic. No nasal drainage. ABDOMEN: Soft. Nondistended. Tenderness with palpation of the right upper quadrant and epigastric area NEUROLOGIC: Alert and oriented. Cranial nerves II through XII grossly intact. LABORATORY DATA: WBC 5.6 hemoglobin 9.3 Total bilirubin 2.1 down to 0.6. AST 718 down to 285. ALT 1068 down to 686. alk phos 298 down to 247. lipase 3567 down to 296. Amylase 193 IMAGING: Abdominal ultrasound showing gallbladder sludge and/or small stones. Mild common bile duct dilation ASSESSMENT: 1. Gallstone pancreatitis PLAN: -Keep patient nothing by mouth -Continue IV fluids -Continue pain medications as needed -Continue to monitor liver enzymes and lipase levels -Consult GI service, patient may need ERCP -Consult medicine for medical management Physician Mud Jack Nozzle Worker note has been reviewed by physician. Signing provider agrees with the documented findings, assessment, and plan of care. Past Medical History Past Medical History: No Reported History History of Any Multi-Drug Resistant Organisms: None Reported Past Surgical History: No Surgical Hx Reported Past Anesthesia/Blood Transfusion Reactions: No Reported Reaction Past Psychological History: No Psychological Hx Reported Smoking Status: Vaper Past Alcohol Use History: Occasional Past Drug Use History: None Reported - Past Family History Mother History Unknown: Yes Medications and Allergies Home Medications Medication Instructions Recorded Confirmed Type Unknown Heart Burn Medication 1 tab PO DAILY PRN 08/27/20 08/27/20 History (Unknown Strength) Allergies Allergy/AdvReac Type Severity Reaction Status Date / Time No Known Allergies Allergy Verified 08/27/20 18:58 Surgical - Exam Vital Signs Temp Pulse Resp BP Pulse Ox 98.6 F 88 18 133/83 100 08/27/20 17:22 08/27/20 17:22 08/27/20 17:22 08/27/20 17:22 08/27/20 17:22 Results - Labs 08/28/20 04:42 08/28/20 04:42 Abnormal Lab Results - Last 24 Hours (Table) 08/27/20 08/27/20 08/28/20 Range/Units 17:49 18:07 04:42 RBC 3.21 L (3.80-5.40) m/uL Hgb 9.3 L D (11.4-16.0) gm/dL Hct 28.6 L (34.0-46.0) % Chloride (96-109) mmol/L Glucose 104 H (74-99) mg/dL Calcium (8.7-10.3) mg/dL Total Bilirubin 2.1 H (0.2-1.3) mg/dL AST 718 H (14-36) U/L ALT 1068 H (4-34) U/L Alkaline Phosphatase 298 H (38-126) U/L Total Protein 8.5 H (6.3-8.2) g/dL Albumin (3.80-4.90) g/dL Amylase (23-121) U/L Lipase 3567 H (23-300) U/L Ur Specific [place] 1.036 H (1.001-1.035) Urine Protein Trace H (Negative) Urine Blood Trace H (Negative) Urine Bilirubin 1+ H (Negative) Urine Mucus Rare H (None) /hpf 08/28/20 Range/Units 04:42 RBC (3.80-5.40) m/uL Hgb (11.4-16.0) gm/dL Hct (34.0-46.0) % Chloride 111 H (96-109) mmol/L Glucose (74-99) mg/dL Calcium 8.2 L (8.7-10.3) mg/dL Total Bilirubin (0.2-1.3) mg/dL AST 285 H (14-36) U/L ALT 686 H (4-34) U/L Alkaline Phosphatase 247 H (38-126) U/L Total Protein 5.9 L (6.3-8.2) g/dL Albumin 3.70 L (3.80-4.90) g/dL Amylase 193 H (23-121) U/L Lipase 296 H (23-300) U/L Ur Specific [place] (1.001-1.035) Urine Protein (Negative) Urine Blood (Negative) Urine Bilirubin (Negative) Urine Mucus (None) /hpf Diabetes panel 08/27/20 08/28/20 Range/Units 17:49 04:42 Sodium 139 141 (137-145) mmol/L Potassium 4.2 3.7 (3.5-5.1) mmol/L Chloride 105 111 H (98-107) mmol/L Carbon Dioxide 26 22.5 (22-30) mmol/L BUN 13 11.0 (7-17) mg/dL Creatinine 0.56 0.6 (0.52-1.04) mg/dL Glucose 104 H 92 (74-99) mg/dL Calcium 9.3 8.2 L (8.4-10.2) mg/dL AST 718 H 285 H (14-36) U/L ALT 1068 H 686 H (4-34) U/L Alkaline Phosphatase 298 H 247 H (38-126) U/L Total Protein 8.5 H 5.9 L (6.3-8.2) g/dL Albumin 4.8 3.70 L (3.5-5.0) g/dL Calcium panel 08/27/20 08/28/20 Range/Units 17:49 04:42 Calcium 9.3 8.2 L (8.4-10.2) mg/dL Albumin 4.8 3.70 L (3.5-5.0) g/dL Pituitary panel 08/27/20 08/28/20 Range/Units 17:49 04:42 Sodium 139 141 (137-145) mmol/L Potassium 4.2 3.7 (3.5-5.1) mmol/L Chloride 105 111 H (98-107) mmol/L Carbon Dioxide 26 22.5 (22-30) mmol/L BUN 13 11.0 (7-17) mg/dL Creatinine 0.56 0.6 (0.52-1.04) mg/dL Glucose 104 H 92 (74-99) mg/dL Calcium 9.3 8.2 L (8.4-10.2) mg/dL Adrenal panel 08/27/20 08/28/20 Range/Units 17:49 04:42 Sodium 139 141 (137-145) mmol/L Potassium 4.2 3.7 (3.5-5.1) mmol/L Chloride 105 111 H (98-107) mmol/L Carbon Dioxide 26 22.5 (22-30) mmol/L BUN 13 11.0 (7-17) mg/dL Creatinine 0.56 0.6 (0.52-1.04) mg/dL Glucose 104 H 92 (74-99) mg/dL Calcium 9.3 8.2 L (8.4-10.2) mg/dL Total Bilirubin 2.1 H 0.6 (0.2-1.3) mg/dL AST 718 H 285 H (14-36) U/L ALT 1068 H 686 H (4-34) U/L Alkaline Phosphatase 298 H 247 H (38-126) U/L Total Protein 8.5 H 5.9 L (6.3-8.2) g/dL Albumin 4.8 3.70 L (3.5-5.0) g/dL <Song Bess - Last Filed: 10/07/20 12:18> History of Present Illness As above. Presumptive diagnosis of gallstone pancreatitis. Pain gradually improving since admission. We'll repeat labs tomorrow. Agree with hospitalist and GI consultation. Cholecystectomy either later during this admission or possibly as an outpatient depending on her course. Surgical - Exam Vital Signs Temp Pulse Resp BP Pulse Ox 98.6 F 88 18 133/83 100 08/27/20 17:22 08/27/20 17:22 08/27/20 17:22 08/27/20 17:22 08/27/20 17:22 Results - Labs 08/28/20 04:42 08/28/20 04:42 Abnormal Lab Results - Last 24 Hours (Table) 08/27/20 08/27/20 08/28/20 Range/Units 17:49 18:07 04:42 RBC 3.21 L (3.80-5.40) m/uL Hgb 9.3 L D (11.4-16.0) gm/dL Hct 28.6 L (34.0-46.0) % Chloride (96-109) mmol/L Glucose 104 H (74-99) mg/dL Calcium (8.7-10.3) mg/dL Total Bilirubin 2.1 H (0.2-1.3) mg/dL AST 718 H (14-36) U/L ALT 1068 H (4-34) U/L Alkaline Phosphatase 298 H (38-126) U/L Total Protein 8.5 H (6.3-8.2) g/dL Albumin (3.80-4.90) g/dL Amylase (23-121) U/L Lipase 3567 H (23-300) U/L Ur Specific [place] 1.036 H (1.001-1.035) Urine Protein Trace H (Negative) Urine Blood Trace H (Negative) Urine Bilirubin 1+ H (Negative) Urine Mucus Rare H (None) /hpf 08/28/20 Range/Units 04:42 RBC (3.80-5.40) m/uL Hgb (11.4-16.0) gm/dL Hct (34.0-46.0) % Chloride 111 H (96-109) mmol/L Glucose (74-99) mg/dL Calcium 8.2 L (8.7-10.3) mg/dL Total Bilirubin (0.2-1.3) mg/dL AST 285 H (14-36) U/L ALT 686 H (4-34) U/L Alkaline Phosphatase 247 H (38-126) U/L Total Protein 5.9 L (6.3-8.2) g/dL Albumin 3.70 L (3.80-4.90) g/dL Amylase 193 H (23-121) U/L Lipase 296 H (23-300) U/L Ur Specific [place] (1.001-1.035) Urine Protein (Negative) Urine Blood (Negative) Urine Bilirubin (Negative) Urine Mucus (None) /hpf Diabetes panel 08/27/20 08/28/20 Range/Units 17:49 04:42 Sodium 139 141 (137-145) mmol/L Potassium 4.2 3.7 (3.5-5.1) mmol/L Chloride 105 111 H (98-107) mmol/L Carbon Dioxide 26 22.5 (22-30) mmol/L BUN 13 11.0 (7-17) mg/dL Creatinine 0.56 0.6 (0.52-1.04) mg/dL Glucose 104 H 92 (74-99) mg/dL Calcium 9.3 8.2 L (8.4-10.2) mg/dL AST 718 H 285 H (14-36) U/L ALT 1068 H 686 H (4-34) U/L Alkaline Phosphatase 298 H 247 H (38-126) U/L Total Protein 8.5 H 5.9 L (6.3-8.2) g/dL Albumin 4.8 3.70 L (3.5-5.0) g/dL Calcium panel 08/27/20 08/28/20 Range/Units 17:49 04:42 Calcium 9.3 8.2 L (8.4-10.2) mg/dL Albumin 4.8 3.70 L (3.5-5.0) g/dL Pituitary panel 08/27/20 08/28/20 Range/Units 17:49 04:42 Sodium 139 141 (137-145) mmol/L Potassium 4.2 3.7 (3.5-5.1) mmol/L Chloride 105 111 H (98-107) mmol/L Carbon Dioxide 26 22.5 (22-30) mmol/L BUN 13 11.0 (7-17) mg/dL Creatinine 0.56 0.6 (0.52-1.04) mg/dL Glucose 104 H 92 (74-99) mg/dL Calcium 9.3 8.2 L (8.4-10.2) mg/dL Adrenal panel 08/27/20 08/28/20 Range/Units 17:49 04:42 Sodium 139 141 (137-145) mmol/L Potassium 4.2 3.7 (3.5-5.1) mmol/L Chloride 105 111 H (98-107) mmol/L Carbon Dioxide 26 22.5 (22-30) mmol/L BUN 13 11.0 (7-17) mg/dL Creatinine 0.56 0.6 (0.52-1.04) mg/dL Glucose 104 H 92 (74-99) mg/dL Calcium 9.3 8.2 L (8.4-10.2) mg/dL Total Bilirubin 2.1 H 0.6 (0.2-1.3) mg/dL AST 718 H 285 H (14-36) U/L ALT 1068 H 686 H (4-34) U/L Alkaline Phosphatase 298 H 247 H (38-126) U/L Total Protein 8.5 H 5.9 L (6.3-8.2) g/dL Albumin 4.8 3.70 L (3.5-5.0) g/dL
[2020-08-28] MEDS: PANTOPRAZOLE 40 MG/10 ML VIAL IVP SCH (14:58)
[2020-08-28] MEDS: HEPARIN SODIUM,PORCINE 5,000 UNIT/ML 1 ML VIAL SQ SCH ×2 (14:58→22:48)
--- NOTE | 2020-08-28 17:44 | P.CONS ---
History of Present Illness - Reason for Consult Consult date: 08/28/20 Medical management - Chief Complaint Abdominal pain - History of Present Illness Patient is 22-year-old female with no significant past medical history who presented to vascular complaint of epigastric and right upper quadrant abdominal pain ongoing for the past 2 days. Patient is 2 months . She had been taking antacids at home which provided intermittent relief of symptoms. She rep orts checking alcohol socially. She was also having nausea with emesis 2. Underwent abdominal ultrasound that showed gallbladder sludge and possible small stones, and CBD dilation. Liver enzymes along with her lipase and amylase were also found to be elevated. Lipase 3500, has improved to 296. She has been admitted to general surgery due to gallstone pancreatitis. She did report having chills at home, she has had no fevers during hospitalization. N currently receiving IV hydration. o leukocytosis. Review of Systems REVIEW OF SYSTEMS: CONSTITUTIONAL: Denies fever or chills. HEENT: Denies blurred vision, vision changes, or eye pain. Denies hemoptysis CARDIOVASCULAR: Denies chest pain or pressure. RESPIRATORY: No shortness of breath. GASTROINTESTINAL: Epigastric and right upper quadrant abdominal pain HEMATOLOGIC: Denies bleeding disorders. GENITOURINARY: Denies any blood in urine or increased urinary frequency. SKIN: Denies pruitis. Denies rash. Past Medical History Past Medical History: No Reported History History of Any Multi-Drug Resistant Organisms: None Reported Past Surgical History: No Surgical Hx Reported Past Anesthesia/Blood Transfusion Reactions: No Reported Reaction Past Psychological History: No Psychological Hx Reported Smoking Status: Vaper Past Alcohol Use History: Occasional Past Drug Use History: None Reported - Past Family History Mother History Unknown: Yes Medications and Allergies Home Medications Medication Instructions Recorded Confirmed Type Unknown Heart Burn Medication 1 tab PO DAILY PRN 08/27/20 08/27/20 History (Unknown Strength) Allergies Allergy/AdvReac Type Severity Reaction Status Date / Time No Known Allergies Allergy Verified 08/27/20 18:58 Physical Exam Vitals: Vital Signs Temp Pulse Pulse Resp BP BP Pulse Ox 08/28/20 12:08 98.2 F 70 16 103/64 96 08/28/20 05:02 98.1 F 62 16 109/68 100 08/27/20 22:02 98.0 F 54 L 16 115/76 100 08/27/20 20:12 98.1 F 82 16 130/85 99 Intake and Output 08/28/20 08/28/20 08/28/20 06:59 14:59 22:59 Other: # Voids 1 Gen: This is a [ ] HEENT: Head is atraumatic, normocephalic. Pupils equal, round. Sclerae is anicteric. NECK: Supple. No JVD. No lymphadenopathy. No thyromegaly. LUNGS: Clear to auscultation. No wheezes or rhonchi. No intercostal retractions. HEART: Regular rate and rhythm. No murmur. ABDOMEN: Soft, nondistended. Mild right upper quadrant tenderness. Bowel sounds normoactive EXTREMITIES: No pedal edema. No calf tenderness. NEUROLOGICAL: Patient is awake, alert and oriented x3. Cranial nerves 2 through 12 are grossly intact. Results CBC & Chem 7: 08/28/20 04:42 08/28/20 04:42 Labs: Abnormal Lab Results - Last 24 Hours (Table) 08/27/20 08/27/20 08/28/20 Range/Units 17:49 18:07 04:42 RBC 3.21 L (3.80-5.40) m/uL Hgb 9.3 L D (11.4-16.0) gm/dL Hct 28.6 L (34.0-46.0) % Chloride (96-109) mmol/L Glucose 104 H (74-99) mg/dL Calcium (8.7-10.3) mg/dL Total Bilirubin 2.1 H (0.2-1.3) mg/dL AST 718 H (14-36) U/L ALT 1068 H (4-34) U/L Alkaline Phosphatase 298 H (38-126) U/L Total Protein 8.5 H (6.3-8.2) g/dL Albumin (3.80-4.90) g/dL Amylase (23-121) U/L Lipase 3567 H (23-300) U/L Ur Specific [place] 1.036 H (1.001-1.035) Urine Protein Trace H (Negative) Urine Blood Trace H (Negative) Urine Bilirubin 1+ H (Negative) Urine Mucus Rare H (None) /hpf 08/28/20 Range/Units 04:42 RBC (3.80-5.40) m/uL Hgb (11.4-16.0) gm/dL Hct (34.0-46.0) % Chloride 111 H (96-109) mmol/L Glucose (74-99) mg/dL Calcium 8.2 L (8.7-10.3) mg/dL Total Bilirubin (0.2-1.3) mg/dL AST 285 H (14-36) U/L ALT 686 H (4-34) U/L Alkaline Phosphatase 247 H (38-126) U/L Total Protein 5.9 L (6.3-8.2) g/dL Albumin 3.70 L (3.80-4.90) g/dL Amylase 193 H (23-121) U/L Lipase 296 H (23-300) U/L Ur Specific [place] (1.001-1.035) Urine Protein (Negative) Urine Blood (Negative) Urine Bilirubin (Negative) Urine Mucus (None) /hpf Assessment and Plan Plan: Assessment and plan Gallstone pancreatitis: Pleasant 20-year-old female who is 2 months who presented with abdominal pain -Continue IV hydration, symptomatically with analgesics and antiemetics -Surgery is following, patient will need eventual cholecystectomy, inpatient versus post discharge -Gastroenterology has been consulted, possible ERCP -Monitor hepatic function, lipase and electrolytes. Antimicrobial therapy-Zosyn DVTprophylaxis subcutaneous heparin, GI prophylaxis Protonix.
[2020-08-29] MEDS: SODIUM CHLORIDE 0.9% 1,000 ML IV SCH ×5 (01:02→23:18)
[2020-08-29 06:23] LABS: HCT 30.1 % (34.0-46.0); HGB 9.4 gm/dL (11.4-16.0); Hypochromasia Marked; MCH 31.2 pg (25.0-35.0); MCHC 31.4 g/dL (31.0-37.0); Macrocytosis Slight; Mean Platelet Volume 7.5; Platelet Count 280 k/uL (150-450); RBC 3.03 m/uL (3.80-5.40); WBC 5.6 k/uL (4.0-11.0)
[2020-08-29 06:24] LABS: MCV 99.4 fL (80.0-100.0)
[2020-08-29 06:29] LABS: ALT 461 U/L (4-34); AST 99 U/L (14-36); African American GFR (CKD) >90 (>60 ml/min/1.73 sqM); Albumin 3.3 g/dL (3.5-5.0); Alkaline Phosphatase 189 U/L (38-126); Amylase 129 U/L (30-110); Anion Gap 7 mmol/L; Blood Urea Nitrogen 7 mg/dL (7-17); Calcium 8.2 mg/dL (8.4-10.2); Carbon Dioxide 19 mmol/L (22-30); Chloride 109 mmol/L (98-107); Glucose 75 mg/dL (74-99); Non-African American GFR(CKD) >90 (>60 ml/min/1.73 sqM); Potassium 3.9 mmol/L (3.5-5.1); Sodium 135 mmol/L (137-145); Total Bilirubin 0.5 mg/dL (0.2-1.3); Total Protein 6.2 g/dL (6.3-8.2)
[2020-08-29 06:39] LABS: Eosinophils # (M) 0.06 k/uL (0-0.7); Lymphocytes # (M) 2.18 k/uL (1.0-4.8); Neutrophils # (M) 3.36 k/uL (1.3-7.7); Neutrophils % (M) 60 %; Nucleated Red Blood Cells 0 /100 WBC (0-0); Total Cells Counted 100
[2020-08-29] MEDS: PANTOPRAZOLE 40 MG/10 ML VIAL IVP SCH (09:27)
[2020-08-29] MEDS: HEPARIN SODIUM,PORCINE 5,000 UNIT/ML 1 ML VIAL SQ SCH ×3 (09:31→23:18)
--- NOTE | 2020-08-29 09:38 | MR ---
MRCP HISTORY: Gallstone pancreatitis Correlation to ultrasound abdomen 08/27/2020 Multiplanar multisequence imaging through the biliary system with 3-dimensional reconstructions perfo ed and an alternate workstation Multiple dependent foci are present within the gallbladder. Pericholecystic fluid is present. No evid ent biliary ductal dilatation, question whether measured structure on ultrasound represents common bi le duct. Liver shows no mass. No evident filling defect within the biliary system. Pancreas shows no definite peripancreatic inflammatory change or pancreatic ductal dilation. The lung bases are clear. Spleen, adrenal glands, kidneys are within normal limits. No evidence of re troperitoneal adenopathy or ascites. Aorta shows normal caliber. Bowel is unremarkable as visualized. IMPRESSION: Cholelithiasis, correlate for cholecystitis, no evident choledocholithiasis
--- NOTE | 2020-08-29 13:37 | P.PN ---
<Massiel Armas - Last Filed: 08/29/20 13:32> Subjective Progress Note Date: 08/29/20 CHIEF COMPLAINT: Abdominal pain HISTORY OF PRESENT ILLNESS: Patient is being followed for gallstone pancreatitis. She had MRCP completed today showing cholelithiasis, correlate for cholecystitis, no evidence of choledocholithiasis. Patient denies any abdominal pain. She denies any nausea or vomiting. She is currently nothing by mouth. She's afebrile. WBC 5.6 hemoglobin 9.4 AST 99 ALT 461 alk phos 189 total bili 0.5 lipase 593 PHYSICAL EXAM: VITAL SIGNS: Reviewed. GENERAL: Well-developed in no acute distress. HEENT: No sclera icterus. Extraocular movements grossly intact. Moist buccal mucosa. Head is atraumatic, normocephalic. ABDOMEN: Soft. Nondistended. Some mild discomfort with palpation in the right upper quadrant NEUROLOGIC: Alert and oriented. Cranial nerves II through XII grossly intact. ASSESSMENT: 1. Presumptive gallstone pancreatitis PLAN: -Keep patient nothing by mouth -Continue IV fluids -Patient will be evaluated by surgeon later today to make further decision regarding cholecystectomy either later during this admission or possibly as an outpatient Physician Home Sales Consultant note has been reviewed by physician. Signing provider agrees with the documented findings, assessment, and plan of care. Objective - Vital Signs Vital signs: Vital Signs Temp 98.2 F 08/29/20 12:15 Pulse 63 08/29/20 12:15 Resp 18 08/29/20 12:15 BP 118/73 08/29/20 12:15 Pulse Ox 99 08/29/20 12:15 Intake & Output 08/28/20 08/29/20 08/29/20 18:59 06:59 18:59 Intake Total 920 50 Balance 920 50 Intake: Intake, IV Titration 800 Amount Sodium Chloride 0.9% 1, 800 000 ml @ 125 mls/hr IV . Q8H [facility] Rx#:[id number] Oral 120 50 Other: Voiding Method Toilet # Voids 3 - Labs CBC & Chem 7: 08/29/20 06:06 08/29/20 06:06 Labs: Abnormal Lab Results - Last 24 Hours (Table) 08/29/20 08/29/20 Range/Units 06:06 06:06 RBC 3.03 L (3.80-5.40) m/uL Hgb 9.4 L (11.4-16.0) gm/dL Hct 30.1 L (34.0-46.0) % Sodium 135 L (137-145) mmol/L Chloride 109 H (98-107) mmol/L Carbon Dioxide 19 L (22-30) mmol/L Creatinine 0.45 L (0.52-1.04) mg/dL Calcium 8.2 L (8.4-10.2) mg/dL AST 99 H (14-36) U/L ALT 461 H (4-34) U/L Alkaline Phosphatase 189 H (38-126) U/L Total Protein 6.2 L (6.3-8.2) g/dL Albumin 3.3 L (3.5-5.0) g/dL Amylase 129 H (30-110) U/L Lipase 593 H (23-300) U/L <Song Bess - Last Filed: 08/29/20 17:13> Subjective As above. MRCP results showed no evidence of choledocholithiasis. Patient's symptoms have improved quite a bit. We'll tentatively schedule for laparoscopic cholecystectomy tomorrow. Begin clear liquid diet. Repeat labs in a.m. Risks of bleeding, infection, bile leak, bile duct injury, retained common bile duct stone, trocar injury, conversion to an open procedure, hernia, anesthesia related complications were reviewed. The patient understands and wishes to proceed. Objective - Vital Signs Vital signs: Vital Signs Temp 97.8 F 08/29/20 14:32 Pulse 67 08/29/20 14:58 Resp 20 08/29/20 14:32 BP 134/84 08/29/20 14:58 Pulse Ox 99 08/29/20 12:15 Intake & Output 08/28/20 08/29/20 08/29/20 18:59 06:59 18:59 Intake Total 920 50 Balance 920 50 Intake: Intake, IV Titration 800 Amount Sodium Chloride 0.9% 1, 800 000 ml @ 125 mls/hr IV . Q8H [facility] Rx#:[id number] Oral 120 50 Other: Voiding Method Toilet # Voids 3 3 - Labs CBC & Chem 7: 08/29/20 06:06 08/29/20 06:06 Labs: Abnormal Lab Results - Last 24 Hours (Table) 08/29/20 08/29/20 Range/Units 06:06 06:06 RBC 3.03 L (3.80-5.40) m/uL Hgb 9.4 L (11.4-16.0) gm/dL Hct 30.1 L (34.0-46.0) % Sodium 135 L (137-145) mmol/L Chloride 109 H (98-107) mmol/L Carbon Dioxide 19 L (22-30) mmol/L Creatinine 0.45 L (0.52-1.04) mg/dL Calcium 8.2 L (8.4-10.2) mg/dL AST 99 H (14-36) U/L ALT 461 H (4-34) U/L Alkaline Phosphatase 189 H (38-126) U/L Total Protein 6.2 L (6.3-8.2) g/dL Albumin 3.3 L (3.5-5.0) g/dL Amylase 129 H (30-110) U/L Lipase 593 H (23-300) U/L
--- NOTE | 2020-08-29 15:27 | P.CONS ---
History of Present Illness - Reason for Consult Consult date: 08/28/20 Gallstone pancreatitis Requesting physician: Song Bess - Chief Complaint Abdominal pain - History of Present Illness 20-year-old female who is 2 months who presented to the hospital with complaints of abdominal pain. The patient reports pain in the epigastric region of her abdomen. This is previously happened earlier in the week and was described as sharp and severe in nature predominantly in the epigastric region and right upper quadrant. The pain recurred with associated vomiting and the patient presented for further evaluation. Patient was diagnosed with gallstone pancreatitis and is currently being hospitalized and receiving treatment. Ultr asound of the abdomen showed CBD of 0.7 cm with gallbladder sludge and small stones and mild CBD dilation. Liver enzymes initially on presentation were significant for a total bilirubin 2.1 with alkaline phosphatase of 298 and an AST of 718 which improved today with a total bilirubin 0.6, alkaline phosphatase 247 and AST of 285. Lipase was elevated on presentation at 3567. Currently patient is feeling better. Review of Systems REVIEW OF SYSTEMS: CONSTITUTIONAL: Denies any fevers, chills, weight change or fatigue. CARDIOVASCULAR: Denies any chest pain, palpitations high or low blood pressures RESPIRATORY: Denies any shortness of breath, hemoptysis or cough. GENITOURINARY: No dysuria or hematuria. MUSCULOSKELETAL: No weakness reported. SKIN: Denies any new rashes or lesions, jaundice or pallor. PSYCHIATRIC: Denies any depression or anxiety. NEUROLOGY: Denies headache, denies any new focal deficits. EARS/NOSE/THROAT: No recent hearing change, congestion, nasal discharge or sore throat. EYES: No pain in eyes, discharge or change in vision. GASTROINTESTINAL: As per HPI. Past Medical History Past Medical History: No Reported History History of Any Multi-Drug Resistant Organisms: None Reported Past Surgical History: No Surgical Hx Reported Past Anesthesia/Blood Transfusion Reactions: No Reported Reaction Past Psychological History: No Psychological Hx Reported Smoking Status: Vaper Past Alcohol Use History: Occasional Past Drug Use History: None Reported - Past Family History Mother History Unknown: Yes Medications and Allergies Home Medications Medication Instructions Recorded Confirmed Type Unknown Heart Burn Medication 1 tab PO DAILY PRN 08/27/20 08/27/20 History (Unknown Strength) Allergies Allergy/AdvReac Type Severity Reaction Status Date / Time No Known Allergies Allergy Verified 08/27/20 18:58 Physical Exam Vitals: Vital Signs Temp Pulse Pulse Resp BP BP Pulse Ox 08/28/20 12:08 98.2 F 70 16 103/64 96 08/28/20 05:02 98.1 F 62 16 109/68 100 08/27/20 22:02 98.0 F 54 L 16 115/76 100 08/27/20 20:12 98.1 F 82 16 130/85 99 08/27/20 17:22 98.6 F 88 18 133/83 100 Intake and Output 08/27/20 08/28/20 08/28/20 22:59 06:59 14:59 Intake Total 150 Balance 150 Intake: Intake, IV Titration 150 Amount Sodium Chloride 0.9% 1, 150 000 ml @ 75 mls/hr IV . [id number] FROILAN Rx#:[id number] Other: # Voids 1 1 Weight 92.351 kg On physical examination, patient appears comfortable in no apparent distress. HEAD: Normocephalic, atraumatic. EYES: No scleral icterus. No conjunctival injection. MOUTH: No lesions, tongue midline. NECK: Trachea midline, no gross abnormalities. CHEST: Clear to auscultation with no wheezing or rhonchi appreciated. HEART: Regular rate and rhythm. ABDOMEN: Soft, mildly tender to palpation. Bowel sounds are positive. No organomegaly. No guarding or rigidity. EXTREMITIES: No pedal edema. SKIN: No rashes, no jaundice. NEUROLOGIC: Alert and oriented x3. No focal deficits. Results CBC & Chem 7: 08/29/20 06:06 08/29/20 06:06 Labs: Abnormal Lab Results - Last 24 Hours (Table) 08/27/20 08/27/20 08/28/20 Range/Units 17:49 18:07 04:42 RBC 3.21 L (3.80-5.40) m/uL Hgb 9.3 L D (11.4-16.0) gm/dL Hct 28.6 L (34.0-46.0) % Chloride (96-109) mmol/L Glucose 104 H (74-99) mg/dL Calcium (8.7-10.3) mg/dL Total Bilirubin 2.1 H (0.2-1.3) mg/dL AST 718 H (14-36) U/L ALT 1068 H (4-34) U/L Alkaline Phosphatase 298 H (38-126) U/L Total Protein 8.5 H (6.3-8.2) g/dL Albumin (3.80-4.90) g/dL Amylase (23-121) U/L Lipase 3567 H (23-300) U/L Ur Specific [place] 1.036 H (1.001-1.035) Urine Protein Trace H (Negative) Urine Blood Trace H (Negative) Urine Bilirubin 1+ H (Negative) Urine Mucus Rare H (None) /hpf 08/28/20 Range/Units 04:42 RBC (3.80-5.40) m/uL Hgb (11.4-16.0) gm/dL Hct (34.0-46.0) % Chloride 111 H (96-109) mmol/L Glucose (74-99) mg/dL Calcium 8.2 L (8.7-10.3) mg/dL Total Bilirubin (0.2-1.3) mg/dL AST 285 H (14-36) U/L ALT 686 H (4-34) U/L Alkaline Phosphatase 247 H (38-126) U/L Total Protein 5.9 L (6.3-8.2) g/dL Albumin 3.70 L (3.80-4.90) g/dL Amylase 193 H (23-121) U/L Lipase 296 H (23-300) U/L Ur Specific [place] (1.001-1.035) Urine Protein (Negative) Urine Blood (Negative) Urine Bilirubin (Negative) Urine Mucus (None) /hpf US - abdomen: report reviewed (Description of the abdomen with findings of 0.73 cm CBD with gallbladder sludge and small stones and mild CBD dilation) Assessment and Plan Assessment: 1. Gallstone pancreatitis: 20-year-old female recently who presented with complaints of epigastric abdominal pain found to have elevation in her liver enzymes with total bilirubin 2.1, alkaline phosphatase 298, AST 718 with 6 ultrasound of the abdomen showing a 0.73 cm CBD with gallbladder sludge and small stones noted. Liver enzymes improved today with total bilirubin 0.6, alkaline phosphatase 247 and AST 285. Abdominal pain overall improved. Unclear if patient has a stone which was passed through the bile duct, choledocholithiasis, or other causes of elevated liver enzymes. Plan: Supportive care Clear liquid diet Plan for MRCP for further evaluation Continue to monitor CBC, BMP, LFTs Surgical service following, with timing of cholecystectomy as per the recommendations Continue IV fluid hydration and pain control Thank you for allowing us to participate in the care of the patient
--- NOTE | 2020-08-29 15:32 | P.PN ---
Subjective Progress Note Date: 08/29/20 Principal diagnosis: Abdominal pain, nausea, and vomiting Patient seen and examined at the bedside. She states she is feeling better today. She denies any nausea or vomiting. She underwent MRCP today with findings of cholelithiasis, correlate for cholecystitis, no evidence of choledocholithiasis. Liver enzymes and lipase improving. Objective - Vital Signs Vital signs: Vital Signs Temp 97.8 F 08/29/20 14:32 Pulse 67 08/29/20 14:58 Resp 20 08/29/20 14:32 BP 134/84 08/29/20 14:58 Pulse Ox 99 08/29/20 12:15 Intake & Output 08/28/20 08/29/20 08/29/20 18:59 06:59 18:59 Intake Total 920 50 Balance 920 50 Intake: Intake, IV Titration 800 Amount Sodium Chloride 0.9% 1, 800 000 ml @ 125 mls/hr IV . Q8H FROILAN Rx#:[id number] Oral 120 50 Other: Voiding Method Toilet # Voids 3 - Exam General appearance: The patient is alert, oriented, in no acute distress. HET: Head is normocephalic and atraumatic. Conjunctiva pink. Sclera anicteric. Neck: Supple without lymphadenopathy. No oral lesions. Abdomen: Soft, nontender, nondistended with bowel sounds. No guarding or rigidity. Extremities: Normal skin color and turgor. No pedal edema. Neurological: No focal deficits. Alert and orientated. - Labs CBC & Chem 7: 08/29/20 06:06 08/29/20 06:06 Labs: Abnormal Lab Results - Last 24 Hours (Table) 08/29/20 08/29/20 Range/Units 06:06 06:06 RBC 3.03 L (3.80-5.40) m/uL Hgb 9.4 L (11.4-16.0) gm/dL Hct 30.1 L (34.0-46.0) % Sodium 135 L (137-145) mmol/L Chloride 109 H (98-107) mmol/L Carbon Dioxide 19 L (22-30) mmol/L Creatinine 0.45 L (0.52-1.04) mg/dL Calcium 8.2 L (8.4-10.2) mg/dL AST 99 H (14-36) U/L ALT 461 H (4-34) U/L Alkaline Phosphatase 189 H (38-126) U/L Total Protein 6.2 L (6.3-8.2) g/dL Albumin 3.3 L (3.5-5.0) g/dL Amylase 129 H (30-110) U/L Lipase 593 H (23-300) U/L Assessment and Plan (1) Gallstone pancreatitis Narrative/Plan: 20-year-old female recently who presented with complaints of epigastric abdominal pain found to have elevation in her liver enzymes with total bilirubin 2.1, alkaline phosphatase 298, AST 718 with 6 ultrasound of the abdomen showing a 0.73 cm CBD with gallbladder sludge and small stones noted. Liver enzymes improved today with total bilirubin 0.6, alkaline phosphatase 247 and AST 285. Abdominal pain overall improved. Unclear if patient has a stone which was passed through the bile duct, choledocholithiasis, or other causes of elevated liver enzymes. Current Visit: Yes Status: Acute Code(s): K85.10 - BILIARY ACUTE PANCREATITIS WITHOUT NECROSIS OR INFECTION SNOMED Code(s): 75860461 (2) Abdominal pain Current Visit: Yes Status: Acute Code(s): R10.9 - UNSPECIFIED ABDOMINAL PAIN SNOMED Code(s): 52005882 (3) Nausea & vomiting Current Visit: Yes Status: Acute Code(s): R11.2 - NAUSEA WITH VOMITING, UNSPECIFIED SNOMED Code(s): 31038885 Plan: Supportive care Advance diet per surgical services Continue to monitor CBC, BMP, LFTs Surgical service following, with timing of cholecystectomy as per the recommendations Continue IV fluid hydration and pain control MRCP ordered and reviewed Thank you for allowing us to participate in the care of the patient The impression and plan of care has been dictated as directed. I performed a history and examination of this patient, discussed the same with the dictator. I agree with the dictator's note ,documented as a scribe. Any additional findings or plans will be noted.
[2020-08-29] MEDS ORDERED: ACETAMINOPHEN TAB 325 MG TAB PO STA (21:49)
[2020-08-30 07:39] LABS: Basophils % (A) 1 %; Eosinophils # (A) 0.2 k/uL (0-0.7); Eosinophils % (A) 5 %; HCT 32.5 % (34.0-46.0); HGB 10.3 gm/dL (11.4-16.0); Hypochromasia Slight; Lymphocytes # (A) 1.6 k/uL (1.0-4.8); Lymphocytes % (A) 35 %; MCH 28.2 pg (25.0-35.0); MCHC 31.7 g/dL (31.0-37.0); Mean Platelet Volume 6.8; Monocytes # (A) 0.3 k/uL (0-1.0); Monocytes % (A) 6 %; Neutrophils # (A) 2.3 k/uL (1.3-7.7); Neutrophils % (A) 52 %; Platelet Count 323 k/uL (150-450); RBC 3.66 m/uL (3.80-5.40); WBC 4.5 k/uL (4.0-11.0)
[2020-08-30 07:44] LABS: MCV 88.8 fL (80.0-100.0)
[2020-08-30 07:47] LABS: ALT 359 U/L (4-34); AST 58 U/L (14-36); African American GFR (CKD) >90 (>60 ml/min/1.73 sqM); Albumin 4.1 g/dL (3.5-5.0); Alkaline Phosphatase 199 U/L (38-126); Amylase 121 U/L (30-110); Anion Gap 9 mmol/L; Blood Urea Nitrogen 6 mg/dL (7-17); Calcium 8.8 mg/dL (8.4-10.2); Carbon Dioxide 24 mmol/L (22-30); Chloride 107 mmol/L (98-107); Glucose 97 mg/dL (74-99); Non-African American GFR(CKD) >90 (>60 ml/min/1.73 sqM); Potassium 3.8 mmol/L (3.5-5.1); Sodium 140 mmol/L (137-145); Total Bilirubin 0.5 mg/dL (0.2-1.3); Total Protein 7.2 g/dL (6.3-8.2)
[2020-08-30] MEDS: PANTOPRAZOLE 40 MG/10 ML VIAL IVP SCH (08:52)
[2020-08-30] MEDS: HEPARIN SODIUM,PORCINE 5,000 UNIT/ML 1 ML VIAL SQ SCH ×2 (08:52→15:25)
[2020-08-30] MEDS: SODIUM CHLORIDE 0.9% 1,000 ML IV SCH (12:06)
[2020-08-30] MEDS ORDERED: IV FLUID CONTINUATION 1,000 ML IV ONE (12:19)
[2020-08-30] MEDS ORDERED: ONDANSETRON 4 MG/2 ML VIAL IVP ONE ×2 (12:22→12:27)
[2020-08-30] MEDS ORDERED: DEXAMETHASONE SOD PHOSPHATE 10 MG/ML 1 ML VIAL IV ONE ×2 (12:22→12:27)
[2020-08-30] MEDS ORDERED: LACTATED RINGERS 1,000 ML IV SCH (12:27)
[2020-08-30] MEDS ORDERED: GLYCOPYRROLATE 0.2 MG/ML 2 ML VIAL ONE (12:47)
[2020-08-30] MEDS ORDERED: LIDOCAINE 1% INJ 10MG/ML (20 ML MDV) ONE (12:47)
[2020-08-30] MEDS ORDERED: SUCCINYLCHOLINE CHLORIDE 100 MG/5 ML SYR IV ONE (12:47)
[2020-08-30] MEDS ORDERED: PROPOFOL 10 MG/ML 20 ML VIAL IV ONE (12:47)
[2020-08-30] MEDS ORDERED: HYDROmorphone (PF) 1 MG/ML ONE (12:47)
[2020-08-30] MEDS ORDERED: MIDAZOLAM 2 MG/2 ML VIAL ONE (12:47)
[2020-08-30] MEDS ORDERED: fentaNYL (PF) 50 MCG/ML 2 ML AMP ONE (12:47)
[2020-08-30] MEDS ORDERED: NEOSTIGMINE 1 MG/ML 10 ML VIAL ONE (12:47)
[2020-08-30] MEDS ORDERED: ROCURONIUM 10 MG/ML (10 ML VIAL) IV ONE (12:47)
[2020-08-30] MEDS ORDERED: BUPIVACAINE (PF) 0.25% 30 ML VIAL SQ ONE ×3 (13:18)
[2020-08-30] MEDS ORDERED: LACTATED RINGERS 1,000 ML IV ONE (13:41)
[2020-08-30] MEDS ORDERED: HYDROcodone/APAP 5-325MG 1 EACH TAB PO PRN (13:58)
--- NOTE | 2020-08-30 14:01 | P.OP ---
Date of Procedure: 08/30/20 Procedure(s) Performed: PREOPERATIVE DIAGNOSIS: Gallstone pancreatitis POSTOPERATIVE DIAGNOSIS: Same PROCEDURE: Laparoscopic cholecystectomy SURGEON: Shahriar EBL: Minimal see anesthesia record ANESTHESIA: Gen. COMPLICATIONS: None OPERATIVE PROCEDURE: The patient was brought and placed on the operating room [facility] in the supine position. The patient was placed under general anesthesia at that time. The abdomen was prepped and draped in the usual sterile fashion. A small vertical infraumbilical incision was made. The fascia was grasped with the Duglas forceps. The fascia was retracted anteriorly. The Veress needle was advanced into the peritoneal cavity. The saline drop test was normal. Insufflation took place up to 15 mmHg. A 5 mm optical trocar was advanced and the peritoneal cavity. 2 additional 5 mm trochars were placed in the right upper quadrant under direct visualization. A 12 mm trocar was advanced into the epigastric incision site. The gallbladder was retracted superiorly and laterally. The peritoneum overlying the infundibulum was bluntly dissected. The patient's cystic duct was visualized. The junction between the cystic duct common and hepatic duct was identified. The cystic duct was then divided after placement of 3 12 mm clips on the patient's side and one on the specimen side. The cystic artery was identified and clipped as well. A small vessel was seen along the gallbladder fossa and clipped as well. The gallbladder was then removed from the liver bed using electrocautery. The gallbladder was then removed from the epigastric trocar site with an Endo Catch bag. The gallbladder fossa was irrigated with saline. There was no evidence of any bleeding or biliary drainage seen. The fascia at the 12 millimeter site was closed using a Aime-Azra 0 Vicryl stitch. The trochars were then removed. The skin at all 4 sites was closed using a 4-0 Monocryl stitch. Skin glue was utilized on the incision sites. At the end of this procedure the sponge and needle counts were correct. DISPOSITION: Stable to the recovery room
[2020-08-30] MEDS ORDERED: KETOROLAC 15 MG/ML 1 ML VIAL IVP ONE (14:07)
[2020-08-30] MEDS: HYDROmorphone 0.5 MG/0.5 ML SYRINGE IVP PRN ×2 (14:18→14:30)
[2020-08-30 15:16] VITALS: TEMP 97.9
--- NOTE | 2020-08-30 15:40 | P.PN ---
Subjective 20-year-old pleasant female is admitted for right upper quadrant abdominal pain found to have cholelithiasis and elevated liver enzymes patient had MRCP did not show, bile duct obstruction. Patient is admitted and cholecystectomy today. Patient's pain is well-controlled no other complaints today. Constitutional: Denied any fatigue denied any fever. Cardio vascular: denied any chest pain, palpitations Gastrointestinal denied any nausea vomiting Pulmonary: Denied any shortness of breath cough Neurologic denied any new focal deficits All inpatient medications were reviewed and appropriate changes in these medications as dictated in the interval history and assessment and plan. Objective - Vital Signs Vital signs: Vital Signs Temp 97.9 F 08/30/20 15:00 Pulse 63 08/30/20 15:15 Resp 16 08/30/20 15:15 BP 130/74 08/30/20 15:15 Pulse Ox 96 08/30/20 15:15 Intake & Output 08/29/20 08/30/20 08/30/20 18:59 06:59 18:59 Intake Total 1700 Output Total 455 Balance 1245 Intake: IV 1700 Oral 0 Output: Urine 450 Estimated Blood Loss 5 Other: # Voids 3 1 1 - Exam PHYSICAL EXAMINATION: GENERAL: The patient is alert and oriented x3, not in any acute distress. Well developed, well nourished. HEENT: Pupils are round and equally reacting to light. EOMI. No scleral icterus. No conjunctival pallor. Normocephalic, atraumatic. No pharyngeal erythema. No thyromegaly. CARDIOVASCULAR: S1 and S2 present. No murmurs, rubs, or gallops. PULMONARY: Chest is clear to auscultation, no wheezing or crackles. ABDOMEN: Soft, nontender, nondistended, normoactive bowel sounds. No palpable organomegaly. MUSCULOSKELETAL: No joint swelling or deformity. EXTREMITIES: No cyanosis, clubbing, or pedal edema. NEUROLOGICAL: Gross neurological examination did not reveal any focal deficits. SKIN: No rashes. - Labs CBC & Chem 7: 08/30/20 07:24 08/30/20 07:24 Labs: Abnormal Lab Results - Last 24 Hours (Table) 08/30/20 08/30/20 Range/Units 07:24 07:24 RBC 3.66 L (3.80-5.40) m/uL Hgb 10.3 L (11.4-16.0) gm/dL Hct 32.5 L (34.0-46.0) % BUN 6 L (7-17) mg/dL AST 58 H (14-36) U/L ALT 359 H (4-34) U/L Alkaline Phosphatase 199 H (38-126) U/L Amylase 121 H (30-110) U/L Assessment and Plan Plan: -Gallstone pancreatitis: Symptoms of pancreatitis resolved that is improved and patient will undergo cholecystectomy today -Common bile duct bile duct stone Ruled out, and bilateral -Possibility of cholecystitis patient is on Zosyn patient is underwent cholecystectomy, probably will be discharged today. -
[2020-08-30 17:36] VITALS: RESP 18
[2020-08-30 18:44] VITALS: BP 123/72; PULSE 66
== END 2020-08-30 20:00 | disposition home or self-care (01) | DRG 417 ==
LOC: EC 17:04 → 6NMEDSUR 19:22 → 6PED 08-28 18:26
PROVIDERS: ADMIT Surgery; ATTEND Surgery
PROC: 0FT44ZZ Resection of Gallbladder, Percutaneous Endoscopic Approach (ICD-10-PCS; principal; 2020-08-30 09:30)
DX: K80.11 Calculus of gallbladder with chronic cholecystitis with obstruction (principal); K85.10 Biliary acute pancreatitis without necrosis or infection; K21.9 Gastro-esophageal reflux disease without esophagitis; F17.290 Nicotine dependence, other tobacco product, uncomplicated; E66.9 Obesity, unspecified; Z68.34 Body mass index [BMI] 34.0-34.9, adult
CPT/HCPCS: 36415; 74181; 76705; 80053; 81001; 81025; 82150; 83690; 85025; 88304; 96361; 96365; 96375; 99285

== ENCOUNTER 2021-02-20 11:09 | Emergency (ER) | payer OTHER ==
[2021-02-20 11:29] VITALS: RESP 18
[2021-02-20] MEDS ORDERED: SODIUM CHLORIDE 0.9% 1,000 ML IV ONE ×2 (13:19→14:44)
--- NOTE | 2021-02-20 13:20 | ED ---
General Adult HPI - General Chief complaint: Nausea/Vomiting/Diarrhea Stated complaint: Vomiting, nausea, 12 weeks Time Seen by Provider: 02/20/21 13:12 Source: patient, RN notes reviewed, old records reviewed Mode of arrival: ambulatory Limitations: no limitations - History of Present Illness Initial comments: 20-year-old female approximately 12 weeks gestation presenting for evaluation of nausea vomiting. No abdominal pain. No lower abdominal pain or cramping. She had a confirmatory ultrasound at outside obstetric clinic. She states that she had a 9 week gestation proximally 3 weeks ago. She's had no fever or chills. No dysuria or hematuria, no vaginal bleeding. No flank pain. No fever. Patient is otherwise healthy. - Related Data Previous Rx's Medication Instructions Recorded Cephalexin [Keflex] 500 mg PO Q12HR #20 cap 02/20/21 Allergies Allergy/AdvReac Type Severity Reaction Status Date / Time No Known Allergies Allergy Verified 02/20/21 13:58 Review of Systems ROS Statement: Those systems with pertinent positive or pertinent negative responses have been documented in the HPI. ROS Other: All systems not noted in ROS Statement are negative. Past Medical History Past Medical History: No Reported History History of Any Multi-Drug Resistant Organisms: None Reported Past Surgical History: Cholecystectomy Past Anesthesia/Blood Transfusion Reactions: No Reported Reaction Past Psychological History: No Psychological Hx Reported Smoking Status: Vaper Past Alcohol Use History: None Reported, Occasional Past Drug Use History: None Reported - Past Family History Mother History Unknown: Yes General Exam Limitations: no limitations General appearance: alert, in no apparent distress Head exam: Present: atraumatic, normocephalic Eye exam: Present: normal appearance, PERRL ENT exam: Present: mucous membranes dry Neck exam: Present: normal inspection. Absent: tenderness, meningismus Respiratory exam: Present: normal lung sounds bilaterally. Absent: respiratory distress, wheezes Cardiovascular Exam: Present: regular rate, normal rhythm GI/Abdominal exam: Present: soft. Absent: distended, tenderness, guarding Back exam: Present: normal inspection. Absent: CVA tenderness (R), CVA tenderness (L) Neurological exam: Present: alert, oriented X3, CN II-XII intact Psychiatric exam: Present: normal affect, normal mood Skin exam: Present: warm, dry, intact. Absent: cyanosis, diaphoretic Course Vital Signs 02/20/21 11:27 Temperature 97.9 F Pulse Rate 104 H Respiratory 18 Rate Blood Pressure 116/67 O2 Sat by Pulse 96 Oximetry - Reevaluation(s) Reevaluation #1: 02/20/21 14:23 Ultrasound report from Center dated 02/04, test date of 01/29 showing an intrauterine with heart rate of 171 from rump length 2.63. She was approximately 9 weeks 3 days gestation at the time of this study on January 29. Medical Decision Making - Medical Decision Making 20-year-old female, G 2P1 proximal 12 weeks gestation presenting with nausea vomiting, dehydration. Patient does appear dehydrated, mildly tachycardic. No lower abdominal pain, no upper abdominal pain, no vaginal discharge or vaginal bleeding. No dysuria or urinary frequency. No fever. Patient otherwise well- appearing. Laboratory studies revealed normal white blood count, stable hemoglobin, mild hyponatremia 132, normal kidney function, she has a transaminitis and mild elevation in alkaline phosphatase with no right upper quadrant pain whatsoever. These labs are consistent with prior, essentially u nchanged mild transaminitis. Patient feeling better after initial liter of IV fluid, given the degree of dehydration 4+ ketones in the urine she is given a total of 2 L of IV hydration emergency department. She is given return parameters. She will follow-up with her shake cutter. Additionally she has an asymptomatic bacteriuria and will be treated with Keflex. - Lab Data Result diagrams: 02/20/21 13:30 02/20/21 13:30 Lab Results 02/20/21 02/20/21 02/20/21 Range/Units 13:30 13:30 14:09 WBC 6.1 (4.0-11.0) k/uL RBC 5.44 H (3.80-5.40) m/uL Hgb 15.4 (11.4-16.0) gm/dL Hct 45.6 (34.0-46.0) % MCV 83.7 (80.0-100.0) fL MCH 28.2 (25.0-35.0) pg MCHC 33.7 (31.0-37.0) g/dL RDW 16.1 H (11.5-15.5) % Plt Count 354 (150-450) k/uL MPV 7.6 Neutrophils % 77 % Lymphocytes % 15 % Monocytes % 5 % Eosinophils % 1 % Basophils % 0 % Neutrophils # 4.7 (1.3-7.7) k/uL Lymphocytes # 0.9 L (1.0-4.8) k/uL Monocytes # 0.3 (0-1.0) k/uL Eosinophils # 0.1 (0-0.7) k/uL Basophils # 0.0 (0-0.2) k/uL Anisocytosis Slight Sodium 132 L (137-145) mmol/L Potassium 5.0 (3.5-5.1) mmol/L Chloride 93 L (98-107) mmol/L Carbon Dioxide 24 (22-30) mmol/L Anion Gap 15 mmol/L BUN 9 (7-17) mg/dL Creatinine 0.41 L (0.52-1.04) mg/dL Est GFR (CKD-EPI)AfAm >90 (>60 ml/min/1.73 sqM) Est GFR (CKD-EPI)NonAf >90 (>60 ml/min/1.73 sqM) Glucose 104 H (74-99) mg/dL Calcium 9.9 (8.4-10.2) mg/dL Total Bilirubin 1.1 (0.2-1.3) mg/dL AST 85 H (14-36) U/L ALT 152 H (4-34) U/L Alkaline Phosphatase 206 H (38-126) U/L Total Protein 9.0 H (6.3-8.2) g/dL Albumin 4.8 (3.5-5.0) g/dL Urine Color Yellow Urine Appearance Cloudy H (Clear) Urine pH 6.5 (5.0-8.0) Ur Specific [place] 1.037 H (1.001-1.035) Urine Protein 2+ H (Negative) Urine Glucose (UA) Negative (Negative) Urine Ketones 4+ H (Negative) Urine Blood Negative (Negative) Urine Nitrite Negative (Negative) Urine Bilirubin 1+ H (Negative) Urine Urobilinogen 3.0 (<2.0) mg/dL Ur Leukocyte Esterase Large H (Negative) Urine RBC 4 (0-5) /hpf Urine WBC 9 H (0-5) /hpf Ur Squamous Epith Cells 8 H (0-4) /hpf Urine Bacteria Rare H (None) /hpf Urine Mucus Many H (None) /hpf Disposition Clinical Impression: Nausea & vomiting, Dehydration, Hyperemesis gravidarum, Asymptomatic bacteriu renée during Disposition: HOME SELF-CARE Condition: Good Instructions (If sedation given, give patient instructions): Acute Nausea and Vomiting (ED), Urinary Tract Infection in (ED) Prescriptions: Cephalexin [Keflex] 500 mg PO Q12HR #20 cap Is patient prescribed a controlled substance at d/c from ED?: No Referrals: None,Stated [Primary Care Provider] - 1-2 days Zainab Guy MD [STAFF PHYSICIAN] - 1-2 days Time of Disposition: 15:07
[2021-02-20 14:02] LABS: ALT 152 U/L (4-34); African American GFR (CKD) >90 (>60 ml/min/1.73 sqM); Anion Gap 15 mmol/L; Blood Urea Nitrogen 9 mg/dL (7-17); Calcium 9.9 mg/dL (8.4-10.2); Carbon Dioxide 24 mmol/L (22-30); Chloride 93 mmol/L (98-107); Glucose 104 mg/dL (74-99); Non-African American GFR(CKD) >90 (>60 ml/min/1.73 sqM); Sodium 132 mmol/L (137-145)
[2021-02-20 14:08] LABS: Anisocytosis Slight; Basophils % (A) 0 %; Eosinophils # (A) 0.1 k/uL (0-0.7); Eosinophils % (A) 1 %; HCT 45.6 % (34.0-46.0); HGB 15.4 gm/dL (11.4-16.0); Lymphocytes # (A) 0.9 k/uL (1.0-4.8); Lymphocytes % (A) 15 %; MCH 28.2 pg (25.0-35.0); MCHC 33.7 g/dL (31.0-37.0); MCV 83.7 fL (80.0-100.0); Mean Platelet Volume 7.6; Monocytes # (A) 0.3 k/uL (0-1.0); Monocytes % (A) 5 %; Neutrophils # (A) 4.7 k/uL (1.3-7.7); Neutrophils % (A) 77 %; Platelet Count 354 k/uL (150-450); RBC 5.44 m/uL (3.80-5.40); RDW 16.1 % (11.5-15.5); WBC 6.1 k/uL (4.0-11.0)
[2021-02-20 14:13] LABS: AST 85 U/L (14-36); Albumin 4.8 g/dL (3.5-5.0); Alkaline Phosphatase 206 U/L (38-126); Total Bilirubin 1.1 mg/dL (0.2-1.3)
[2021-02-20 14:26] LABS: Appearance,Urine Cloudy (Clear); Bacteria,Urine Rare /hpf; Bilirubin,Urine 1+ (Negative); Blood,Urine Negative (Negative); Color,Urine Yellow; Glucose,Urine (UA) Negative (Negative); Ketones,Urine 4+ (Negative); Leukocyte Esterase,Urine Large (Negative); Mucus,Urine Many /hpf; Nitrite,Urine Negative (Negative); PH, Urine 6.5 (5.0-8.0); Protein,Urine 2+ (Negative); RBC,Urine 4 /hpf (0-5); Specific Gravity,Urine 1.037 (1.001-1.035); Squamous Epithelial Cell,Urine 8 /hpf (0-4); WBC,Urine 9 /hpf (0-5)
[2021-02-20 16:16] VITALS: BP 133/67; PULSE 69; TEMP 97.8
== END 2021-02-20 16:16 | disposition home or self-care (01) ==
LOC: EC 11:09
DX: O21.1 Hyperemesis gravidarum with metabolic disturbance (principal); O99.281 Endocrine, nutritional and metabolic diseases complicating pregnancy, first trimester; E86.0 Dehydration; O23.91 Unspecified genitourinary tract infection in pregnancy, first trimester; R82.71 Bacteriuria; O26.611 Liver and biliary tract disorders in pregnancy, first trimester; R74.01 Elevation of levels of liver transaminase levels; R74.8 Abnormal levels of other serum enzymes; R82.4 Acetonuria; O99.331 Smoking (tobacco) complicating pregnancy, first trimester; F17.290 Nicotine dependence, other tobacco product, uncomplicated; Z90.49 Acquired absence of other specified parts of digestive tract; Z3A.12 12 weeks gestation of pregnancy
CPT/HCPCS: 36415; 80053; 81001; 85025; 96360; 96361; 99284

== ENCOUNTER 2021-08-23 20:50 | Inpatient (IN) | payer OTHER ==
[2021-08-23] MEDS ORDERED: CARBOPROST TROMETHAMINE 250 MCG/ML 1 ML AMP IM PRN (21:11)
[2021-08-23] MEDS ORDERED: LIDOCAINE 0.5% (PF) 5 MG/ML (50 ML SDV) SQ PRN (21:11)
[2021-08-23] MEDS ORDERED: METHYLERGONOVINE 0.2 MG/ML 1 ML AMP IM PRN (21:11)
[2021-08-23] MEDS ORDERED: TERBUTALINE 1 MG/ML VIAL SQ PRN (21:11)
[2021-08-23] MEDS ORDERED: OXYTOCIN 10 UNIT/ML 1 ML VIAL IM PRN (21:11)
[2021-08-23] MEDS ORDERED: LACTATED RINGERS 1,000 ML IV SCH (21:15)
[2021-08-23] MEDS ORDERED: OXYTOCIN 30 UNITS/500 ML NS 30 UNIT in SALINE 1 500ML.BAG IV SCH ×2 (21:15→23:08)
[2021-08-23] MEDS ORDERED: AMPICILLIN 2,000 MG in SODIUM CHLORIDE 0.9% 100 ML IVPB ONE (21:30)
[2021-08-23 21:53] LABS: Basophils % (A) 0 %; Eosinophils # (A) 0.1 k/uL (0-0.7); Eosinophils % (A) 2 %; HCT 33.3 % (34.0-46.0); HGB 10.7 gm/dL (11.4-16.0); Hypochromasia Slight; Lymphocytes % (A) 23 %; MCH 28.6 pg (25.0-35.0); MCHC 32.1 g/dL (31.0-37.0); MCV 89.1 fL (80.0-100.0); Mean Platelet Volume 8.8; Monocytes # (A) 0.4 k/uL (0-1.0); Monocytes % (A) 4 %; Neutrophils # (A) 6.1 k/uL (1.3-7.7); Neutrophils % (A) 69 %; Platelet Count 270 k/uL (150-450); RBC 3.73 m/uL (3.80-5.40); WBC 8.8 k/uL (3.8-10.6)
[2021-08-23] MEDS ORDERED: LANOLIN CREAM 5 GM TUBE TOPICAL PRN (23:08)
[2021-08-23] MEDS ORDERED: SIMETHICONE 80 MG CHEWABLE PO PRN (23:08)
[2021-08-23] MEDS ORDERED: ACETAMINOPHEN TAB 325 MG TAB PO PRN (23:08)
[2021-08-23] MEDS ORDERED: diphenhydrAMINE 25 MG CAP PO PRN (23:08)
[2021-08-23] MEDS ORDERED: diphenhydrAMINE 50 MG CAP PO PRN (23:08)
[2021-08-23] MEDS ORDERED: BENZOCAINE/MENTHOL SPRAY 1 GM/SPRAY AEROSOL TOPICAL PRN (23:08)
[2021-08-23] MEDS ORDERED: HYDROCORTISONE 2.5% RECTAL CREAM 30 GM TUBE RECTAL PRN (23:08)
[2021-08-23] MEDS ORDERED: diphenhydrAMINE 50 MG/ML 1 ML VIAL IVP PRN ×2 (23:08)
[2021-08-23] MEDS ORDERED: ZOLPIDEM 5 MG TAB PO PRN (23:08)
--- NOTE | 2021-08-23 23:11 | P.HPOB ---
History of Present Illness H&P Date: 08/23/21 Chief Complaint: Intrauterine term Patient is a 21-year-old at 38 weeks gestation arise in active labor. She is dilated to 5-6 cm 90% effaced -2 station. She is groupie strep positive were delaying artificial rupture membranes to see if we can get 2 doses antibody exam and although with her in very active labor it seems unlikely. Her course otherwise was unremarkable she is noted to have started her course at approximately [address] Walsh pertinent labs could A+ blood type, Rh antibody was negative, rubella is immune, hepatitis B surface antigen/RPR and HIV were all negative and group B strep is positive. If needed Pitocin augmentation of labor will be used but at this time with her in active labor it seems like we will be able to hold off on straining that medication. She is not clamped use anything for pain. A category 1 tracing is noted. heart tones were in the 140s Past Medical History Past Medical History: No Reported History History of Any Multi-Drug Resistant Organisms: None Reported Past Surgical History: Cholecystectomy Past Anesthesia/Blood Transfusion Reactions: No Reported Reaction Past Psychological History: No Psychological Hx Reported Smoking Status: Never smoker Past Alcohol Use History: None Reported, Occasional Past Drug Use History: None Reported - Past Family History Mother History Unknown: Yes Family Medical History: No Reported History Medications and Allergies Allergies Allergy/AdvReac Type Severity Reaction Status Date / Time No Known Allergies Allergy Verified 08/23/21 20:53 Exam Osteopathic Statement: *. No significant issues noted on an osteopathic structural exam other than those noted in the History and Physical/Consult. Vital Signs Temp Pulse Resp BP Pulse Ox 08/23/21 21:11 97.4 F L 97 14 134/78 95 08/23/21 20:52 97.3 F L 97 16 134/78 95 Intake and Output 08/23/21 08/23/21 08/24/21 14:59 22:59 06:59 Other: Weight 99.79 kg - OBG Physical Exam Breast: both: normal (no masses) Abdomen: bowel sounds normal, no diffuse tenderness, no bruit present, no guarding noted, no hepatomegaly, no splenomegaly, no mass Vulva: both: normal Vagina: normal moisture, no discharge Cervix: no lesion, no discharge Uterus: normal size, normal contour Adnexa: both: normal Anus/Rectum: normal perianal skin, no rectal mass, no hemorrhoids, heme negative Results Result Diagrams: 08/23/21 21:30 Abnormal Lab Results - Last 24 Hours (Table) 08/23/21 Range/Units 21:30 RBC 3.73 L (3.80-5.40) m/uL Hgb 10.7 L (11.4-16.0) gm/dL Hct 33.3 L (34.0-46.0) %
--- NOTE | 2021-08-23 23:12 | P.PROBDLV ---
Vaginal Delivery Note - . Vaginal Delivery Note: Patient progressed complete and pushed with spontaneous vaginal delivery of a viable female over an intact perineum. Following deliver the head anterior posterior shoulders were delivered with gentle downward upper traction from left occiput anterior position. Once baby was fully delivered mouth nares were bulb suctioned and baby was placed mother's abdomen where the umbilical cord was clamped cut usual fashion an nursery personnel was present to some care . Umbilical cord was allowed to pulsate for 30 seconds prior to clamping and cutting. Placenta was then delivered intact and Pitocin was added to the IV. scores were 8 and 9 at one and 5 minutes respectively and the weight is pending. Both mother and baby are stable however following delivery.
[2021-08-23] MEDS: IBUPROFEN 600 MG TAB PO SCH (23:31)
[2021-08-24] MEDS ORDERED: AMPICILLIN 1,000 MG in SODIUM CHLORIDE 0.9% 50 ML IVPB SCH (02:00)
[2021-08-24] MEDS: SENNOSIDES-DOCUSATE SODIUM 1 EACH TAB PO SCH ×2 (07:53→19:38)
[2021-08-24] MEDS: IBUPROFEN 600 MG TAB PO SCH ×2 (07:53→19:38)
[2021-08-24 19:38] VITALS: RESP 16
[2021-08-25] MEDS: IBUPROFEN 600 MG TAB PO SCH ×4 (03:17→18:37)
--- NOTE | 2021-08-25 07:24 | P.DS ---
Providers Date of admission: 08/23/21 21:05 Expected date of discharge: 08/25/21 Attending physician: Margaux Walsh Primary care physician: Stated None - Discharge Diagnosis(es) (1) Normal vaginal delivery Current Visit: Yes Status: Acute Hospital Course: Patient presented in active labor. She underwent a normal vaginal delivery. course was uncomplicated. Her lochia is decreasing, she is ambulating voiding without difficulty. She'll be discharged home day #2 in stable condition to follow-up with me in 6 weeks. Patient Condition at Discharge: Good Plan - Discharge Summary New Discharge Prescriptions: New Ibuprofen [Motrin] 600 mg PO Q6H #30 tab Discharge Medication List Ibuprofen [Motrin] 600 mg PO Q6H #30 tab 08/25/21 [Rx] Follow up Appointment(s)/Referral(s): Margaux Walsh DO [Doctor of Osteopathic Medicine] - 6 Weeks Discharge Disposition: HOME SELF-CARE
[2021-08-25] MEDS: SENNOSIDES-DOCUSATE SODIUM 1 EACH TAB PO SCH (11:15)
[2021-08-25 20:10] VITALS: BP 132/74; PULSE 76; TEMP 98.4
== END 2021-08-25 23:05 | disposition home or self-care (01) | DRG 807 ==
LOC: FBPOP 20:50 → 4FBP 21:05
PROVIDERS: ADMIT Obstetrics & Gynecology; ATTEND Obstetrics & Gynecology
PROC: 10E0XZZ Delivery of Products of Conception, External Approach (ICD-10-PCS; principal; 2021-08-23)
DX: O99.824 Streptococcus B carrier state complicating childbirth (principal); Z37.0 Single live birth; Z3A.38 38 weeks gestation of pregnancy; Z90.49 Acquired absence of other specified parts of digestive tract; Z87.19 Personal history of other diseases of the digestive system; Z98.890 Other specified postprocedural states
CPT/HCPCS: 59025; 85025; 86850; 86900; 86901; 99213